=== PATIENT | female | born 1955 | race African-American/Black ===

== ENCOUNTER 2020-12-16 15:50 | Outpatient (CLI) | payer MEDICARE, SELFPAY ==
[2020-12-16 17:19] LABS: Hemoglobin A1C 6.8 % (<5.7)
[2020-12-16 17:22] LABS: Alanine Aminotransferase 9 U/L (4-35); Alkaline Phosphatase 104 U/L (38-126); Anion Gap 8 mmol/L (8-16); Aspartate Amino Transferase 16 U/L (14-36); Bilirubin,Total 0.6 mg/dL (0.2-1.3); Blood Urea Nitrogen 22 mg/dL (7-17); Calcium 9.9 mg/dL (8.4-10.2); Carbon Dioxide 25 mmol/L (22-30); Chloride 109 mmol/L (98-107); Cholesterol 254 mg/dL (0-200); Estimated Glomerular Filt Rate 60; Glucose 120 mg/dL (65-110); HDL Direct 47 mg/dL; Potassium 4.4 mmol/L (3.4-5.0); Sodium 142 mmol/L (137-145); Triglycerides 336 mg/dL (<150)
[2020-12-16 17:33] LABS: LDL Cholesterol Direct 117 mg/dL
== END 2020-12-16 15:51 | disposition home or self-care (01) ==
LOC: ANHWCLAB 15:55
PROVIDERS: PCP Internal Medicine; Referring Provider Internal Medicine; Visit Provider Internal Medicine
DX: E11.49 Type 2 diabetes mellitus with other diabetic neurological complication (principal); Z51.81 Encounter for therapeutic drug level monitoring; Z79.899 Other long term (current) drug therapy; M10.9 Gout, unspecified; E78.5 Hyperlipidemia, unspecified
CPT/HCPCS: 36415; 80053; 80061; 83036; 84550

== ENCOUNTER 2020-12-17 13:16 | Outpatient (CLI) | payer MEDICARE, SELFPAY ==
[2020-12-17 13:43] LABS: Creatinine Urine 27.5 mg/dL
[2020-12-17 13:48] LABS: MALB Creatinine Ratio 53.1 mg/g (0-30); Microalbumin Urine Random 14.6 mg/L (0-16.7)
== END 2020-12-17 13:17 | disposition home or self-care (01) ==
LOC: ANHLAB 13:19
PROVIDERS: PCP Internal Medicine; Visit Provider Internal Medicine
DX: E11.49 Type 2 diabetes mellitus with other diabetic neurological complication (principal); I10 Essential (primary) hypertension; M10.9 Gout, unspecified
CPT/HCPCS: 82043

== ENCOUNTER 2020-12-24 08:05 | Outpatient (CLI) | payer MEDICARE, SELFPAY ==
--- NOTE | ~2020-12-24 | US_ITS ---
EXAMINATION: US arterial ankle brachial ind DATE: 12/24/2020 08:46 INDICATION: Peripheral vascular disease TECHNIQUE: Segmental pressures and plethysmographic and Doppler waveforms of the brachial and lower e xtremity arteries were obtained. COMPARISON: None. FINDINGS: Right and left brachial artery pressures of 232 mm Hg and 234 mm Hg, respectively, are concordant (no rmal difference <= 30 mmHg). The right ankle-brachial index (FRANCESCO) is 0.76 (normal >= 0.9-1.0). The right great toe-brachial index (TBI) is 0.58 (normal >= 0.65). Arterial Doppler waveforms are biphasic with brisk systolic upstrokes . The left FRANCESCO is 0.76. The left TBI is 0.49. Arterial Doppler waveforms are biphasic with brisk systol ic upstrokes. IMPRESSION: 1. Arterial occlusive disease to the bilateral lower limbs with mild to moderately decreased bilatera l ABIs and mildly decreased right and mild to moderately decreased left TBIs Reviewed, dictated and finalized at location A. IMPRESSION: 1. Arterial occlusive disease to the bilateral lower limbs with mild to moderat tres decreased bilateral ABIs and mildly decreased right and mild to moderately decreased left TBIs
== END 2020-12-24 08:06 | disposition home or self-care (01) ==
PROVIDERS: PCP Internal Medicine; Visit Provider Internal Medicine
DX: I70.203 Unspecified atherosclerosis of native arteries of extremities, bilateral legs (principal)
CPT/HCPCS: 93922

== ENCOUNTER 2021-01-16 10:30 | Outpatient (CLI) | payer MEDICARE, SELFPAY ==
[2021-01-16 11:10] LABS: Anion Gap 10 mmol/L (8-16); Blood Urea Nitrogen 19 mg/dL (7-17); Calcium 9.6 mg/dL (8.4-10.2); Carbon Dioxide 26 mmol/L (22-30); Chloride 109 mmol/L (98-107); Estimated Glomerular Filt Rate 50; Glucose 112 mg/dL (65-110); Potassium 4.3 mmol/L (3.4-5.0); Sodium 145 mmol/L (137-145)
== END 2021-01-16 10:31 | disposition home or self-care (01) ==
LOC: ANHLAB 10:32
PROVIDERS: PCP Internal Medicine; Visit Provider Internal Medicine
DX: I10 Essential (primary) hypertension (principal)
CPT/HCPCS: 36415; 80048

== ENCOUNTER 2021-02-18 15:31 | Outpatient (CLI) | payer MEDICARE, SELFPAY ==
--- NOTE | ~2021-02-18 | XR_ITS ---
XR chest 2V 02/18/2021 16:04 Indication: Shortness of breath Procedure: 2 view chest Comparison: No prior studies for comparison. Findings: Borderline heart size. There are bilateral infiltrates of the mid and lower lung zones, kandi picious for pneumonia versus edema. Small right pleural effusion. There is prominent right paratrache al and right hilar soft tissue. Consider lymphadenopathy. Impression: 1: Bilateral mixed interstitial and airspace disease of the mid and lower lungs, suspicious for pneum onia versus edema. 2: Possible mediastinal/right hilar lymphadenopathy. Consider correlation with contrast-enhanced CT chest. Reviewed, dictated and finalized at location A. GEMENT INTERNSHIP Impression: 1: Bilateral mixed interstitial and airspace disease of the mid and lower lungs , suspicious for pneumonia versus edema. 2: Possible mediastinal/right hilar lymphadenopathy. Consider correlation with contrast-enhanced CT chest.
== END 2021-02-18 15:32 | disposition home or self-care (01) ==
PROVIDERS: PCP Internal Medicine; Visit Provider Internal Medicine
DX: R53.83 Other fatigue (principal); I10 Essential (primary) hypertension; R06.02 Shortness of breath; R91.8 Other nonspecific abnormal finding of lung field
CPT/HCPCS: 71046

== ENCOUNTER 2021-02-28 15:13 | Outpatient (CLI) | payer MEDICARE, SELFPAY ==
[2021-02-28 15:51] LABS: Basophils Percent Auto 0.6 % (0.2-1.2); Eosinophils Absolute Auto 0.2 K/mm3 (0-0.3); Eosinophils Percent Auto 2.2 % (0-4.4); Hematocrit 36.9 % (37.0-47.0); Immature Granulocyte Absolute 0.03 K/mm3 (0.00-0.031); Immature Granulocyte Percent A 0.4 % (0-0.5); Lymphocytes Percent Auto 27.9 % (18.3-44.2); Mean Corpuscular HGB Conc 32.5 g/dl (32-36); Mean Corpuscular Hemoglobin 30.8 pg (26-34); Mean Corpuscular Volume 94.6 fl (80-100); Mean Platelet Volume 9.4 fl (7.4-10.4); Monocytes Absolute Auto 0.4 K/mm3 (0.1-0.6); Monocytes Percent Auto 6.2 % (2.6-8.5); Neutrophils Absolute Auto 4.3 K/mm3 (1.3-6.7); Neutrophils Percent Auto 62.7 % (45.5-73.1); Platelet Count Result 366 k/mm3 (150-375); Red Cell Distribution Width 13.2 % (11.5-14.5); White Blood Count 6.8 K/mm3 (4.5-10.0)
[2021-02-28 16:05] LABS: Alanine Aminotransferase 28 U/L (4-35); Albumin Level 3.9 g/dL (3.5-5.1); Alkaline Phosphatase 96 U/L (38-126); Anion Gap 6 mmol/L (8-16); Aspartate Amino Transferase 29 U/L (14-36); Bilirubin,Total 0.4 mg/dL (0.2-1.3); Blood Urea Nitrogen 19 mg/dL (7-17); Calcium 9.5 mg/dL (8.4-10.2); Carbon Dioxide 25 mmol/L (22-30); Chloride 106 mmol/L (98-107); Estimated Glomerular Filt Rate 54; Glucose 184 mg/dL (65-110); Potassium 3.9 mmol/L (3.4-5.0); Sodium 137 mmol/L (137-145)
== END 2021-02-28 15:14 | disposition home or self-care (01) ==
LOC: ANHLAB 15:17
PROVIDERS: PCP Internal Medicine; Visit Provider Internal Medicine
DX: R53.83 Other fatigue (principal); I10 Essential (primary) hypertension; R06.02 Shortness of breath
CPT/HCPCS: 36415; 80053; 85025

== ENCOUNTER 2021-03-12 08:03 | Outpatient (CLI) | payer MEDICARE, SELFPAY ==
--- NOTE | ~2021-03-12 | CT_ITS ---
EXAMINATION: CT chest high resolution wo mi EXAM DATE: 03/12/2021 08:35 INDICATION: R93.89 - Abnormal findings on diagnostic imaging of other... which reported mixed interst itial airspace disease and possible right hilar/mediastinal lymphadenopathy. TECHNIQUE: Spiral CT of the chest without contrast. HRCT. Axial, coronal and sagittal images of the c hest were reviewed. Coronal maximum intensity pixel images of chest reviewed. The dose-length produ ct (DLP) for this examination was 274.34 mGy-cm. The exposure was tailored according to patient size (auto mA exposure control), and iterative reconstruction (ASIR) was used as additional dose reductio n technique. Correlation is made to Chest x-ray 02/18/2021. FINDINGS: No evidence of interstitial lung disease on the HRCT. There is moderate cardiomegaly and al so moderate-sized pericardial effusion. There is moderate to large right pleural effusion and small t o moderate left pleural effusion. There is collapsed right middle lobe and lingula, additional segmen aviva bibasilar atelectasis. No hilar or mediastinal lymphadenopathy suspected on this noncontrast study. Numerous small gallstone s. Moderate-sized bridging endplate osteophytes, diffuse idiopathic skeletal hyperostosis. There are no osteoblastic or osteolytic lesions identified. IMPRESSION: 1. Moderate cardiomegaly and moderate pericardial effusion. 2. Moderate to large right, small to moderate left pleural effusions. 3. Multisegmental basilar atelectasis. 4. Cholelithiasis. Reviewed, dictated and finalized at location B. ESSOR OF BUSINESS ADMINISTRATION
--- NOTE | 2021-03-12 08:55 | ECHO_ITS ---
Patient Info Name: Isabel Wick Age: 66 years : 1955 Gender: Female Ht: 66 in Wt: 178 lbs BSA: 1.96 m2 HR: 77 bpm BP: 170 / 99 mmHg Exam Date: 03/12/2021 9:23 AM Exam Location: [facility] Patient Status: Outpatient Admit Date: 03/12/2021 Staff Ordering Physician: Gabino Wiseman DO Parallel Computing Software Engineer: Glenn Zuleta RDCS, RT Attending Provider: Gabino Wiseman DO Referring Physician: Ivone GARCIA; Exam Type: CA echo doppler color flow Study Info Indications I10 - Essential (primary) hypertension Complete two-dimensional, color flow and Doppler transthoracic echocardiogram is performed. Strain analysis performed. Summary 1. Complete two-dimensional, color flow and Doppler transthoracic echocardiogram is performed. 2. Left ventricular chamber dimension is severely enlarged. 3. Left ventricular systolic function is severely reduced, estimated at 15-20%. 4. There is mildly increased left ventricular wall thickness. 5. The left ventricular diastolic function is grade I diastolic dysfunction. 6. E/e' 27 is significantly elevated. 7. Global longitudinal strain is abnormal at -6.7%. 8. Right ventricular systolic function is severely reduced and with abnormal TAPSE 1.5 cm. 9. Left atrial chamber dimension is moderately enlarged. 10. Right atrial chamber dimension is mildly enlarged. 11. There is mild aortic valve sclerosis. 12. There is trace mitral valve regurgitation. 13. There is mild tricuspid valve regurgitation. 14. Severe pulmonary hypertension, estimated pulmonary arterial systolic pressure is 70 mmHg. 15. There is trace pulmonic regurgitation. 16. There is small-moderate circumferential pericardial effusion with up to 1.4 cm effusion. No cardiac tamponade. Left Ventricle E/e' 27 is significantly elevated. Global longitudinal strain is abnormal at -6.7%. Left ventricular chamber dimension is severely enlarged. Left ventricular systolic function is severely reduced, estimated at 15-20%. There is mildly increased left ventricular wall thickness. The left ventricular diastolic function is grade I diastolic dysfunction. Right Ventricle Right ventricular systolic function is severely reduced and with abnormal TAPSE 1.5 cm. Right ventricular chamber dimension is normal. Left Atria Left atrial chamber dimension is moderately enlarged. Right Atria Right atrial chamber dimension is mildly enlarged. Aortic Valve The aortic valve is trileaflet. There is mild aortic valve sclerosis. There is no aortic valve stenosis. There is no aortic valve regurgitation. Pulmonic Valve There is trace pulmonic regurgitation. Mitral Valve There is no mitral valve stenosis. There is trace mitral valve regurgitation. Tricuspid Valve There is mild tricuspid valve regurgitation. Severe pulmonary hypertension, estimated pulmonary arterial systolic pressure is 70 mmHg. Pericardium/Pleural There is small-moderate circumferential pericardial effusion with up to 1.4 cm effusion. No cardiac tamponade. Inferior Vena Cava Normal inferior vena cava with >50% collapse upon inspiration consistent with normal right atrial pressure, 5 mmHg. Aorta The aortic root size at the sinus of Valsalva is normal. Left Ventricular Outflow Tract Name Value Normal LVOT 2D
== END 2021-03-12 08:04 | disposition home or self-care (01) ==
PROVIDERS: PCP Internal Medicine; Visit Provider Internal Medicine
DX: R91.8 Other nonspecific abnormal finding of lung field (principal); K80.20 Calculus of gallbladder without cholecystitis without obstruction; I10 Essential (primary) hypertension; I36.1 Nonrheumatic tricuspid (valve) insufficiency; I27.20 Pulmonary hypertension, unspecified; I31.3 Pericardial effusion (noninflammatory); I51.7 Cardiomegaly; J90 Pleural effusion, not elsewhere classified; M48.10 Ankylosing hyperostosis [Forestier], site unspecified
CPT/HCPCS: 71250; 93306

== ENCOUNTER 2021-03-24 18:27 | Inpatient (IN) | payer MEDICARE, SELFPAY ==
--- NOTE | ~2021-03-24 | CT_ITS ---
EXAMINATION: CTA brain carotid EXAM DATE: 03/25/2021 00:45 INDICATION: Stroke. Slurred speech. TECHNIQUE: Noncontrast head CT. Spiral CTA of the carotid arteries was performed with intravenous i njection 100 cc of Omnipaque 350. Axial, coronal, sagittal reformatted images reviewed. Additional r eformatted images created on dedicated 3-D workstation. NASCET comparable standard used to assess th e degree of arterial stenosis. Spiral CT angiogram cerebral arteries performed with the same intrave nous injection of contrast. Source images of the brain CTA transferred to dedicated workstation for 3 -D rotational image creation. Coronal, sagittal maximum intensity pixel images also reviewed. The d ose-length product (DLP) for this examination was 1757.80 mGy-cm. The exposure was tailored accordi ng to patient size, and iterative reconstruction (ASIR) was used as additional dose reduction techniq ue. Comparison is made to prior examination from CT head 03/24/2021. FINDINGS: There is mild bilateral carotid bulb arterial sclerosis, 0% carotid stenosis bilaterally. T he vertebral arteries are codominant. The right M1 segment is truncated just before its trifurcation with significantly diminished flow in the branches distal to this. Probably acutely thrombosed given appearance on head CT. There is no carotid or vertebral basilar arterial dissection or fibromuscular dysplasia. There are no cerebral artery aneurysms. There is symmetric cerebral artery arborization. The sagittal, transverse and sigmoid sinuses enhance normally, no venous sinus thrombosis. Internal c erebral veins also enhance normally. Interval development of cramer-white differentiation loss involving large portion of the right middle c erebral artery with diffusion, consistent with acute infarction. No hemorrhagic conversion. There is punctate old left caudate head lacunar infarction. There is no acute intraparenchymal hemorrhage. No evidence of intraparenchymal brain mass lesion. There is no mass effect or midline shift. There is no obstructive hydrocephalus suspected. There are no extra-axial collections. Incidental Findings: Bilateral pleural effusions. Cervical spondylosis. Subcentimeter thyroid nodules . IMPRESSION: 1. Right M1 occlusion likely acute thrombus, subsequent developing large MCA acute infarction. 2. Bilateral carotid bulb 0% stenosis. Reviewed, dictated and finalized at location A. O MANAGER IMPRESSION: 1. Right M1 occlusion likely acute thrombus, subsequent developing large MCA a cute infarction. 2. Bilateral carotid bulb 0% stenosis.
--- NOTE | ~2021-03-24 | XR_ITS ---
EXAMINATION: XR chest ET placement EXAM DATE: 03/26/2021 03:13 INDICATION: After intubation to confirm ET placement . TECHNIQUE: Portable AP frontal chest x-ray was obtained. Comparison is made to prior examination from earlier same date. FINDINGS: Endotracheal tube tip is 1.6 centimeters above the chito. There is a nasogastric tube see n with tip collimated off the study, but below the left hemidiaphragm. Cardiomegaly and pericardial e ffusion. No sizable pleural effusion. Developing left lower lobe pneumonia or edema. There is no pneu mothorax suspected. There is aortic arteriosclerosis. IMPRESSION: 1. ET tube tip above chito but could be safely retracted 1 cm. 2. Cardiomegaly, pericardial effusion. 3. Developing retrocardiac edema or pneumonia. Reviewed, dictated and finalized at location A. GER ESTATE
--- NOTE | ~2021-03-24 | XR_ITS ---
XR chest 1V DATE: 03/24/2021 20:51 INDICATION: Fall. Weakness. Transient alteration of awareness. TECHNIQUE: Supine AP view on 03/24/2021 at 2032 hours COMPARISON: 03/12/2021 CT chest high resolution scan 02/18/2021 PA and lateral chest FINDINGS: There is very prominent globular enlargement of the cardiac silhouette, increased since , due to a combination of pericardial effusion and cardiomegaly documented on 03/12/2021 CT ch est examination. Prominent aortic arch calcification. Left lower lobe infiltrate and/atelectasis and to a lesser extent right mid and lower lung atelectasi s are suggested. Small pleural effusions are suggested. No pneumothorax. Diffuse osteopenia. Degenerative spurring of the thoracic spine. IMPRESSION: Prominent globular enlarged cardiac silhouette due to a combination of cardiomegaly and p ericardial effusion Left lower lobe atelectasis at right mid and lower lung atelectasis and/or infiltrate Reviewed, dictated and finalized at location A. LING MACHINE OPERATOR IMPRESSION: Prominent globular enlarged cardiac silhouette due to a combination of cardiomegaly and pericardial effusion Left lower lobe atelectasis at right mid and lower lung atelectasis and/or infi ltrate
--- NOTE | ~2021-03-24 | XR_ITS ---
EXAMINATION: XR chest 1V portable DATE: 03/29/2021 07:12 INDICATION: Intubation. TECHNIQUE: A single frontal view of the chest was obtained. COMPARISON: Chest single view 03/28/2021, chest CT 03/12/2021 FINDINGS: There are airspace opacities in the lower lung zones, left worse than right. A calcified ri ght lung nodules consistent with old granulomatous disease. There are small pleural effusions. No pne umothorax. There is enlargement of cardiac silhouette. The nasogastric tube tip is beyond the inferio r margin of the radiograph, but at least to the stomach. The endotracheal tube tip is 3.5 cm above th e chito. A right upper extremity peripherally inserted central venous catheter (PICC) is seen with t ip in the left brachiocephalic vein. IMPRESSION: 1. Airspace opacities in the lower lung zones with mild improvement on the left, consistent with atel ectasis versus pneumonia. 2. Stable small pleural effusions. 3. Enlargement of the cardiac silhouette, likely a combination of cardiomegaly and pericardial effusi on. 4. Right-sided PICC tip now in the left brachiocephalic vein. Reviewed, dictated and finalized at location A. K HACKER IMPRESSION: 1. Airspace opacities in the lower lung zones with mild improvement on the left , consistent with atelectasis versus pneumonia. 2. Stable small pleural effusions. 3. Enlargement of the cardiac silhouette, likely a combination of cardiomegaly and pericardial effusion. 4. Right-sided PICC tip now in the left brachiocephalic vein.
--- NOTE | ~2021-03-24 | XR_ITS ---
EXAMINATION: XR abdomen NG/feed tube insert EXAM DATE: 03/30/2021 12:27 INDICATION: NG placement TECHNIQUE: Frontal projection(s) of the abdomen for interpretation. There is no prior study for brianne tucker. FINDINGS: Feeding tube with tip extending toward the right lower lobe, in the airway. I discussed th is with IM unit nurse taking care of patient at time of this dictation. Nonobstructive upper abdomina l bowel gas pattern. Cardiomegaly. IMPRESSION: NG tube in the airway; recommend removing. Reviewed, dictated and finalized at location A. BUYER
--- NOTE | ~2021-03-24 | XR_ITS ---
EXAMINATION: XR abdomen NG/feed tube insert DATE: 03/30/2021 13:07 INDICATION: Nasogastric tube placement. TECHNIQUE: A semierect view of the abdomen was obtained. COMPARISON: Abdomen radiograph at 12:19 PM, chest CT 03/12/2021 FINDINGS: The lower abdomen and right lateral aspect of the abdomen are excluded. There are no dilate d loops of bowel. The nasogastric tube tip is in the stomach. A right upper extremity peripherally in serted central venous catheter (PICC) is seen with tip in the superior vena cava. There is enlargemen t of the cardiac silhouette. There is a small left pleural effusion. There are airspace opacities in left mid and lower lung zones. IMPRESSION: 1. Nasogastric tube tip in the stomach. 2. Stable small left pleural effusion. 3. Airspace opacities in left mid and lower lung zones, consistent with atelectasis versus pneumonia. 4. Enlargement of the cardiac silhouette, likely a combination of cardiomegaly and pericardial effusi on. Reviewed, dictated and finalized at location A. L TRIMMER IMPRESSION: 1. Nasogastric tube tip in the stomach. 2. Stable small left pleural effusion. 3. Airspace opacities in left mid and lower lung zones, consistent with atelect asis versus pneumonia. 4. Enlargement of the cardiac silhouette, likely a combination of cardiomegaly and pericardial effusion.
--- NOTE | ~2021-03-24 | XR_ITS ---
XR hip BI 2V w AP pelvis DATE: 03/24/2021 20:51 INDICATION: Unwitnessed fall. TECHNIQUE: AP pelvis. AP and lateral views of each hip. COMPARISON: None FINDINGS: No pelvic fracture or bone destruction is detected. The pubic symphysis and sacroiliac join ts are intact. No fracture or dislocation, avascular necrosis or bone destruction of either hip is noted. Mild hip o steoarthritis. Degenerative disc disease and included L4-5 and L5-S1. IMPRESSION: No pelvic or hip fracture or dislocation Reviewed, dictated and finalized at location A. ODITY TRADER
--- NOTE | ~2021-03-24 | CT_ITS ---
EXAMINATION: CT cervical spine wo con DATE: 03/24/2021 20:34 INDICATION: Unwitnessed fall. Head and neck injury. TECHNIQUE: Computed tomography (CT) of the cervical spine was performed without intravenous contrast. Automated exposure control and iterative reconstruction technique were employed. Exam dose: 424.04 mGy-cm total exam DLP. COMPARISON: None FINDINGS: C1 and C2 are normally aligned and the odontoid process is intact. There is a 1.4 mm anterolisthesis at C4-5. There is severe degenerative disc disease and 2.5 mm retrolisthesis at C5-6. There is mild to moderate degenerative disc disease and slight anterolisthesis at C6-7. Moderate dege nerative disc disease at C7-T1 and T1-2. There is fusion of the left C2-3 apophyseal joint and prominent degenerative changes at the remaining bilateral cervical apophyseal joints. There is degenerative spurring at the uncovertebral joints, particularly severe at C5-6.. IMPRESSION: Prominent cervical spondylosis; no fracture or dislocation or locked facet Reviewed, dictated and finalized at [facility]. Reviewed, dictated and finalized at location A. ILE SCREEN MAKER IMPRESSION: Prominent cervical spondylosis; no fracture or dislocation or lock ed facet
--- NOTE | ~2021-03-24 | XR_ITS ---
EXAMINATION: XR chest 1V portable DATE: 03/28/2021 05:53 INDICATION: Intubation. TECHNIQUE: A single frontal view of the chest was obtained. COMPARISON: Chest single view 03/27/2021, chest CT 03/12/2021 FINDINGS: Calcified right lung nodules are consistent with old granulomatous disease. There are airsp delmar opacities in the right lower lung zone and left lower lobe and lingula. There are small pleural e ffusions. No pneumothorax. There is enlargement of the cardiac silhouette. The endotracheal tube tip is 2.3 cm above the chito. The nasogastric tube tip is beyond the inferior margin of the radiograph, but at least to the stomach. A right upper extremity peripherally inserted central venous catheter ( PICC) is seen with tip in the superior vena cava. IMPRESSION: 1. Stable airspace opacities in the right lower lung zone and left lower lobe and lingula, consistent with atelectasis versus pneumonia. 2. Stable small pleural effusions. 3. Stable enlargement of the cardiac silhouette, likely a combination of cardiomegaly and pericardial effusion. Reviewed, dictated and finalized at location A. MS DIRECTOR IMPRESSION: 1. Stable airspace opacities in the right lower lung zone and left lower lobe a nd lingula, consistent with atelectasis versus pneumonia. 2. Stable small pleural effusions. 3. Stable enlargement of the cardiac silhouette, likely a combination of cardio megaly and pericardial effusion.
--- NOTE | ~2021-03-24 | US_ITS ---
EXAMINATION: US renal BI EXAM DATE: 03/25/2021 10:24 INDICATION: Acute kidney insufficiency. TECHNIQUE: Multiple grayscale and Doppler images of the kidneys were obtained (by a technologist who performed the scan) and subsequently reviewed. There is no prior study for comparison. FINDINGS: Right kidney: There is normal contour and echogenicity. It measures 11.3 x 4.4 x 4.3 centimeters. Th ere is a 1.3 cm cyst. There is no hydronephrosis. Left kidney: Limited from bowel gas obscuring. There is normal contour and echogenicity. It measures 10.6 x 4.7 x 5.3 centimeters. There are no focal renal lesions identified. There is no hydronephr osis. Bladder is undistended and poorly visualized. Incidental cholelithiasis. IMPRESSION: 1. No hydronephrosis. 2. Cholelithiasis. Reviewed, dictated and finalized at location A. INE STOPPAGE FREQUENCY CHECKER
--- NOTE | ~2021-03-24 | CT_ITS ---
EXAMINATION: CT brain wo con DATE: 03/24/2021 20:33 INDICATION: Fall. Weakness. TECHNIQUE: Computed tomography (CT) of the head was performed without intravenous contrast. The mA wa s adjusted according to patient size. Iterative reconstruction technique was employed. Exam dose: 68 1.00 mGy-cm total exam DLP. COMPARISON: None FINDINGS: There is a chronic lacunar infarct of the left caudate nucleus. There is intracranial cerebral atherosclerosis including calcification of the vertebral arteries, bas ilar artery and bilateral carotid siphon internal carotid artery calcifications. No recent cerebrovas cular accident is detected. There is nonspecific diminished attenuation of the cerebral white matter, likely due to chronic small vessel ischemic changes. Ventricular size appears normal. No midline shift or mass effect effect. No subdural or epidural adria fawad. No skull fracture or bone destruction. There is nearly complete opacification of the left frontal sinus. Opacified posterior right ethmoid a ir cell. There is soft tissue thickening of the sphenoid sinuses. The mastoid air cells are normally developed and aerated. IMPRESSION: Cerebral atherosclerosis and chronic small vessel ischemic changes of cerebral white mat ter Chronic left caudate nucleus lacunar infarct No acute intracranial finding Paranasal sinus disease Reviewed, dictated and finalized at [facility]. Reviewed, dictated and finalized at location A. MECHANIC IMPRESSION: Cerebral atherosclerosis and chronic small vessel ischemic changes of cerebral white matter Chronic left caudate nucleus lacunar infarct No acute intracranial finding Paranasal sinus disease
--- NOTE | ~2021-03-24 | XR_ITS ---
EXAMINATION: XR abdomen NG/feed tube insert EXAM DATE: 03/26/2021 03:13 INDICATION: og tube placement. TECHNIQUE: Frontal projection(s) of the abdomen for interpretation. There is no prior study for brianne tucker. FINDINGS: Feeding tube tip projects over gastric antral region. Nonobstructive upper abdominal bowel gas pattern. Retrocardiac airspace disease. Cardiomegaly and pericardial effusion. Right basilar gran uloma. IMPRESSION: Feeding tip in position. Reviewed, dictated and finalized at location A. ESSOR OF CRIMINAL JUSTICE IMPRESSION: Feeding tip in position.
--- NOTE | ~2021-03-24 | XR_ITS ---
EXAMINATION: XR chest 1V portable EXAM DATE: 03/26/2021 03:12 INDICATION: Respiratory failure . TECHNIQUE: Portable AP frontal chest x-ray was obtained. Comparison is made to prior examination from 03/24/2021. FINDINGS: Severely enlarged cardiac silhouette, combination of cardiomegaly and pericardial effusion. No sizable pleural effusion. No pneumothorax or confluent consolidation. There may be developing air space disease, edema or pneumonia. There are no osseous abnormalities identified. IMPRESSION: 1. Cardiomegaly and pericardial effusion. 2. Possible developing airspace disease, edema or pneumonia. Reviewed, dictated and finalized at location A. E PROCESSING MACHINE OPERATOR
--- NOTE | ~2021-03-24 | XR_ITS ---
XR foot LT min 3V DATE: 03/24/2021 21:51 INDICATION: Left foot crush injury, pain TECHNIQUE: 4 views COMPARISON: None FINDINGS: There is diffuse osteopenia. Plantar calcaneal enthesopathy. No recent fracture or dislocation, periosteal reaction or bone destruction is detected. Joint spaces appear relatively preserved. IMPRESSION: Osteopenia Plantar calcaneal enthesopathy Reviewed, dictated and finalized at location A. FOUNTAIN OPERATOR
--- NOTE | ~2021-03-24 | XR_ITS ---
EXAMINATION: XR chest 1V portable EXAM DATE: 03/27/2021 06:35 INDICATION: Respiratory failure. TECHNIQUE: Portable AP frontal chest x-ray was obtained. Comparison is made to prior examination from 03/26/2021. FINDINGS: Endotracheal tube tip is 4 centimeters above the chito. There is a nasogastric tube seen with tip collimated off the study, but below the left hemidiaphragm. Cardiomegaly and pericardial eff usion. There is multi segmental left lower lobe consolidation with air bronchograms. Probable develop ing small to moderate left pleural effusion right lateral sulcus granuloma. There is no pneumothorax suspected. There is aortic arteriosclerosis. IMPRESSION: 1. Tubes in position 2. Cardiomegaly, pericardial effusion. 3. Dense retrocardiac edema or pneumonia. 4. Developing left pleural effusion. Reviewed, dictated and finalized at location A. [facility]
--- NOTE | ~2021-03-24 | XR_ITS ---
XR ankle LT min 3V DATE: 03/24/2021 20:50 INDICATION: Left ankle swelling TECHNIQUE: 4 views COMPARISON: None FINDINGS: There is left ankle soft tissue swelling, more prominent laterally. There is diffuse osteopenia. No fracture or dislocation of the ankle or disruption of the ankle mortise is detected. No periosteal reaction or bone destruction. Prominent plantar calcaneal enthesopathy. IMPRESSION: Soft tissue swelling, more prominent laterally Reviewed, dictated and finalized at location A. EL ROLLER
[2021-03-24 18:29] VITALS: BP 192/89; PULSE 78; RESP 26; TEMP 36.6; O2SAT 96
[2021-03-24 18:58] LABS: Glucose Point of Care 217 mg/dl (65-105)
[2021-03-24 19:23] VITALS: BP 111/70; PULSE 73; RESP 21; O2SAT 95
--- NOTE | 2021-03-24 19:32 | ED.GENADULT ---
HPI - General Adult General Chief complaint: Altered Mental Status Stated complaint: altered loc - unknown duration 24-36 hours Time Seen by Provider: 03/24/21 18:27 Source: family and EMS Mode of arrival: EMS Limitations: altered mental status History of Present Illness HPI narrative: Patient brought in by EMS with reports of altered mental status. Patient's brother and his girlfriend are here at the bedside and provide me with majority of history. Apparently no one was able to get a hold of patient for the last 24 to 36 hours. Brother indicates that he speaks with his sister on a daily basis but has not spoken with her since 03/22/2021. One of her friends contacted him today concerned that they were unable to reach her on the phone. He went to her place of residence around 1700 and found her laying on the ground. He called her name and she informed him where in the residence she was. She was laying on the ground with her head under her bed. EMS was contacted. When they arrived they checked her BS and she had a reading of 40. They attempted to give her juice unsuccessfully. She was confused at that time. Patient's past medical history includes hypertension, hyperlipidemia, depression, and diabetes which appears to be controlled with oral agents alone. Family states patient had been incontinent of urine when they found her. Related Data Home Medications Medication Instructions Recorded Confirmed aspirin 81 mg tablet,delayed 81 mg PO DAILY 12/16/20 03/20/21 release pantoprazole 40 mg tablet,delayed 40 mg PO QAM 12/16/20 03/20/21 release bumetanide 2 mg tablet 4 mg PO DAILY tablet 01/06/21 03/20/21 spironolactone 25 mg tablet 50 mg PO DAILY tablet 02/18/21 03/20/21 Allergies Allergy/AdvReac Type Severity Reaction Status Date / Time amlodipine Allergy Mild y Verified 03/20/21 14:07 Review of Systems Review of Systems: ROS unobtainable: Yes unobtainable due to mental status PMFSH Past Medical History Medical History (Updated 03/24/21 @ 21:49 by Spencer Cuellar, RAUL, AJ) Crying Diabetes Frequent urination High blood pressure Hot flashes Hyperlipidemia Leg pain Memory loss Swollen feet Weakness Surgical History Surgical History History of back surgery Family History Family History Mother Hypertension Sibling Alcoholism Heart problem Social History Social History Smoking packs per day: 0.75 Smoking cigarettes per day: 15.0 Years smoked: 40 Smoking pack-years: 30.00 Smoking status: Current every day smoker Tobacco type: cigarettes Second hand tobacco smoke exposure: No Alcohol intake: never Substance use: never Substance use type: does not use Exam Narrative: GENERAL: Well-appearing, well-nourished, and in no acute distress. HEAD: Normocephalic, atraumatic. EYES: PERRLA and EOMI. ENT: Nares clear, no rhinorrhea or epistaxis. Mucous membranes moist. Oropharynx without tonsillar hypertrophy exudate or other lesions. Bilateral TMs pearly cramer nonbulging NECK: Supple. No adenopathy or masses. No carotid bruits or JVD CHEST: Clear to auscultation. No respiratory distress. No wheezes rales or rhonchi HEART: Regular rate and rhythm. No murmur heard. Normal peripheral pulses. ABDOMEN: Soft, nontender, nondistended, normal active bowel sounds. EXTREMITIES: 1+ nonpitting edema to left ankle SKIN: Warm, dry, no rash. NEURO: Lethargic, localizes to physical stimuli. Does not answer any orientation questions or interview questions PSYCH: Normal mood and affect. Course Course Emergency Course: This is a 66-year-old female brought in by EMS after being found down at home by her brother. Blood sugar at home was 40. Upon arriving here she was lethargic and localized to physical stimuli. No signif
[2021-03-24 20:12] LABS: Basophils Percent Auto 0.3 % (0.2-1.2); Eosinophils Percent Auto 0.2 % (0-4.4); Hematocrit 41.7 % (37.0-47.0); Hemoglobin 13.5 g/dL (12.0-15.0); Immature Granulocyte Absolute 0.03 K/mm3 (0.00-0.031); Immature Granulocyte Percent A 0.3 % (0-0.5); Lymphocytes Percent Auto 10.3 % (18.3-44.2); Mean Corpuscular HGB Conc 32.4 g/dl (32-36); Mean Corpuscular Hemoglobin 31.1 pg (26-34); Mean Corpuscular Volume 96.1 fl (80-100); Mean Platelet Volume 9.8 fl (7.4-10.4); Monocytes Absolute Auto 0.5 K/mm3 (0.1-0.6); Monocytes Percent Auto 4.8 % (2.6-8.5); Neutrophils Absolute Auto 8.9 K/mm3 (1.3-6.7); Neutrophils Percent Auto 84.1 % (45.5-73.1); Platelet Count Result 314 k/mm3 (150-375); Red Blood Count 4.34 M/mm3 (4.2-5.4); Red Cell Distribution Width 13.6 % (11.5-14.5); White Blood Count 10.6 K/mm3 (4.5-10.0)
[2021-03-24 20:21] LABS: Ethanol < 10 mg/dL (<10)
[2021-03-24 20:22] LABS: Alanine Aminotransferase 21 U/L (4-35); Albumin Level 3.8 g/dL (3.5-5.1); Alkaline Phosphatase 93 U/L (38-126); Anion Gap 9 mmol/L (8-16); Aspartate Amino Transferase 31 U/L (14-36); Blood Urea Nitrogen 27 mg/dL (7-17); Calcium 9.4 mg/dL (8.4-10.2); Carbon Dioxide 28 mmol/L (22-30); Chloride 101 mmol/L (98-107); Creatine Kinase 305 U/L (30-135); Estimated CRCL calculation 46 ml/min; Estimated Glomerular Filt Rate 60; Glucose 149 mg/dL (65-110); INR 1.4; Potassium 3.8 mmol/L (3.4-5.0); Prothrombin Time 16.7 Seconds (11.1-14.7); Sodium 138 mmol/L (137-145)
[2021-03-24 20:23] LABS: Partial Thromboplastin Time 35.9 SECONDS (22.3-36.8)
[2021-03-24 20:37] LABS: NT Pro B Type Natriuretic Pept 25800 pg/mL (5-100)
--- NOTE | 2021-03-24 20:54 | ECG_ITS ---
Measurements Intervals Spring Rate: 78 P: 49 UT: 174 QRS: -29 QRSD: 100 T: 165 QT: 408 QTc: 465 Interpretive Statements SINUS RHYTHM POSSIBLE LEFT ATRIAL ENLARGEMENT DELAYED PRECORDIAL R/S TRANSITION POSSIBLE LEFT VENTRICULAR HYPERTROPHY ST-T WAVE ABNORMALITY IN ANTEROLAT/HIGH LAT LEADS- CONSIDER ISCHEMIA ABNORMAL ECG Electronically Signed On 03-25-2021 7:30:20 TABLET TESTER by Marc Barragan D.O.
[2021-03-24 21:23] LABS: Add Urine Microscopic? YES; Appearance Urine Clear (Clear); Bilirubin Urine Negative (Negative); Blood Urine 1+ (Negative); Color Urine Yellow (Yellow); Glucose Urine UA Negative (Negative); Ketones Urine Negative (Negative); Leukocyte Esterase Ur Negative LEU/UL (Negative); Mucus Urine Rare /lpf; Nitrate Urine Negative (Negative); Protein Urine 3+ mg/dL (Negative); Specific Grav Ur 1.016 (1.001-1.035); Squamous Epithelial Cell Urine Moderate /hpf (Few); Urobilinogen Urine Negative mg/dL (<2.0); WBC Urine 16-20 /hpf
[2021-03-24 21:37] LABS: Amphetamine Screen Urine Negative (Negative); Barbiturate Screen Urine Negative (Negative); Benzodiazepines Screen Urine Negative (Negative); Cannabinoid Screen Urine Negative (Negative); Cocaine Screen Urine Negative (Negative); Methadone Screen Urine Negative (Negative); Opiate Screen Urine Negative (Negative); Phencyclidine Screen Urine Negative (Negative)
--- NOTE | 2021-03-24 21:40 | PM.IMHP ---
H&P: HPI History of Present Illness Date/Time: 03/24/21 21:40 Chief Complaint: Altered mental status Narrative: This is a 66-year-old female with past medical history significant for type 2 diabetes mellitus, congestive heart failure, systolic heart failure, peripheral vascular disease, claudication, gastroesophageal reflux disease, hypertension, dyslipidemia. Patient was brought to the emergency room via EMS after she was not responding her phone and her friend and family became increasingly concerned about her she was found down in her bedroom with urine incontinence and semi unconscious EMS was called and she was found to have a blood sugar of 40. Patient was brought to the emergency room for further evaluation. Most of the history I have obtained upon reviewing medical records from primary care physician and emergency room. At the time of my visit no family is around but they were earlier. According to family members patient was noted to have a slurred speech on Josue. For the last couple of days patient or friends did not have any contact with her. In emergency room preliminary workup was significant for a CT of the head with chronic old infarct but no acute intracranial abnormality. According to medical records patient had been worked up in the outpatient setting for shortness of breath and bilateral lower extremity swelling and claudication. An ankle-brachial index performed as back as November of 2020 showed arterial occlusion moderate. A chest x-ray performed in January showed that the patient had paratracheal lymphadenopathy with possible infiltrates with possible pleural effusion, a CT high-resolution of the chest was then performed 2 weeks ago and it was noted the patient had a moderate pericardial effusion, moderate cardiomegaly, moderate to large right pleural effusion and small to moderate left pleural effusions. An echocardiogram performed on March 12, 2021 showed an ejection fraction of 15-20% with severely reduced systolic function and a small to moderate pericardial effusion with no tamponade. At the time of my visit patient is stuporous she response to painful stimuli and will open her eyes to command. Blood pressure on arrival to emergency room was 192/89 oxygen saturation on room air is 96%. A chest x-ray performed today showed increased pericardial infusion when compared to prior study. Patient is being admitted for further evaluation, management and treatment. Review of Systems Review of Systems: ROS unobtainable: Yes unobtainable due to medical condition (Stuporous) [facility] Past Medical History Medical History (Updated 03/25/21 @ 01:22 by Neto Rizo MD) Crying Diabetes Frequent urination High blood pressure Hot flashes Hyperlipidemia Leg pain Memory loss Swollen feet Weakness Surgical History Surgical History History of back surgery Family History Family History Mother Hypertension Sibling Alcoholism Heart problem Social History Social History Smoking packs per day: 0.75 Smoking cigarettes per day: 15.0 Years smoked: 40 Smoking pack-years: 30.00 Smoking status: Current every day smoker Tobacco type: cigarettes Second hand tobacco smoke exposure: No Alcohol intake: never Substance use: never Substance use type: does not use Meds Home Medications and Allergies Home Medications Medication Instructions Recorded Confirmed Type aspirin 81 mg tablet,delayed 81 mg PO DAILY 12/16/20 03/20/21 History release pantoprazole 40 mg tablet,delayed 40 mg PO QAM 12/16/20 03/20/21 History release bumetanide 2 mg tablet 4 mg PO DAILY tablet 01/06/21 03/20/21 History gabapentin 300 mg capsule 300 mg PO DAILY #90 cap 01/30/21 03/20/21 Rx metoprolol tartrate 50 mg tablet 50 mg PO DAILY
[2021-03-24 22:33] VITALS: BP 145/92; PULSE 73; RESP 18; O2SAT 100
[2021-03-24 23:21] LABS: Troponin I 0.175 ng/mL (0.000-0.034)
[2021-03-24] MEDS: FUROSEMIDE INJ 40 MG/4 ML VIAL IV PUSH (23:31)
[2021-03-24 23:35] VITALS: BP 123/106; PULSE 76; RESP 20; O2SAT 100
[2021-03-25] VITALS (14 sets, daily range): BP systolic 172–218; BP diastolic 69–91; PULSE 63–81; RESP 14–25; TEMP 36.2–36.8; O2SAT 90–100; BMI 27.3
[2021-03-25 00:15] LABS: Alveolar/Arterial O2 Gradient 43.3 mmHg; Base Excess ABG 4.4 mEq/l (+/-2.0); Fractional Inspired Oxygen 21 %; HCO3 ABG 27.4 mEq/l (22.0-26.0); Oxygen Content ABG 18.2 %vol (16.0-22.0); Oxygen Saturation ABG 94.2 % (95.0-100.0); PCO2 ABG 35.7 mmHg (35.0-45.0); PO2 ABG 63.7 mmHg (80.0-100.0); PO2 FiO2 Ratio Arterial Blood 3.03 %; Total Hemoglobin 14.2 g/dL (12.0-18.0)
[2021-03-25 00:16] LABS: Device ROOM AIR; Modified Allen's Test Unable to perform; Site Drawn RIGHT RADIAL; pH ABG 7.503 (7.350-7.450)
[2021-03-25 00:53] LABS: Glucose Point of Care 133 mg/dl (65-105)
[2021-03-25 01:09] LABS: Lactic Acid Reflex 1.9 mmol/L (0.7-2.1)
[2021-03-25 03:44] LABS: Alanine Aminotransferase 19 U/L (4-35); Albumin Level 3.7 g/dL (3.5-5.1); Alkaline Phosphatase 89 U/L (38-126); Anion Gap 4 mmol/L (8-16); Aspartate Amino Transferase 36 U/L (14-36); Bilirubin,Total 0.9 mg/dL (0.2-1.3); Blood Urea Nitrogen 26 mg/dL (7-17); Calcium 9.2 mg/dL (8.4-10.2); Carbon Dioxide 29 mmol/L (22-30); Chloride 103 mmol/L (98-107); Estimated CRCL calculation 42 ml/min; Estimated Glomerular Filt Rate 54; Glucose 165 mg/dL (65-110); Potassium 3.7 mmol/L (3.4-5.0); Sodium 136 mmol/L (137-145)
[2021-03-25 03:59] LABS: Basophils Percent Auto 0.2 % (0.2-1.2); Eosinophils Percent Auto 0.2 % (0-4.4); Hematocrit 42.3 % (37.0-47.0); Hemoglobin 13.6 g/dL (12.0-15.0); Immature Granulocyte Absolute 0.02 K/mm3 (0.00-0.031); Immature Granulocyte Percent A 0.2 % (0-0.5); Lymphocytes Absolute Auto 1.02 K/mm3 (0.9-3.2); Lymphocytes Percent Auto 11.1 % (18.3-44.2); Mean Corpuscular HGB Conc 32.2 g/dl (32-36); Mean Corpuscular Hemoglobin 30.9 pg (26-34); Mean Corpuscular Volume 96.1 fl (80-100); Mean Platelet Volume 10.3 fl (7.4-10.4); Monocytes Absolute Auto 0.5 K/mm3 (0.1-0.6); Monocytes Percent Auto 5.4 % (2.6-8.5); Neutrophils Absolute Auto 7.6 K/mm3 (1.3-6.7); Neutrophils Percent Auto 82.9 % (45.5-73.1); Platelet Count Result 317 k/mm3 (150-375); Red Cell Distribution Width 13.8 % (11.5-14.5); White Blood Count 9.2 K/mm3 (4.5-10.0)
[2021-03-25 04:01] LABS: Troponin I 0.165 ng/mL (0.000-0.034)
[2021-03-25 04:56] LABS: Glucose Point of Care 153 mg/dl (65-105)
--- NOTE | 2021-03-25 05:40 | ADMGEN ---
This patient, Isabel Wick, was admitted to Virtual Bed 3rd Floor-1. Patient/family oriented to hospital policies and general routines including ID bracelet, bed and alarms, visiting hours, pain management, procedures, bathroom and other care routines, personal items, smoking policy, room service/diet, and visiting hours. Information on how to activate the Rapid Response Team has been discussed. Patient/Family are encouraged to report perceived risks to care and to ask questions if they do not understand what they are told or what they should do.
[2021-03-25] MEDS: FUROSEMIDE INJ 40 MG/4 ML VIAL IV PUSH (08:51)
[2021-03-25 09:32] LABS: Glucose Point of Care 160 mg/dl (65-105)
--- NOTE | 2021-03-25 10:00 | PC.NURSE ---
patient went down for renal ultrasound.
[2021-03-25] MEDS: hydrALAZINE HCL 20 MG/ML VIAL 10 MG IV PUSH ×2 (12:48→23:37)
--- NOTE | 2021-03-25 13:10 | PC.NURSE ---
Unable to obtain accurate information on MRI check list, brother of patient unable to answer all questions, MRI notified and are unable to take patient at this time.
--- NOTE | 2021-03-25 13:35 | PM.IMPN ---
Progress Note: A&P Assessment and Plan (1) Altered mental status: Code(s): R41.82 - Altered mental status, unspecified Status: Acute Assessment and Plan: Patient seen well last on however was noticed to have a slurry speech time. CT head with no acute intracranial abnormalities CTA head with acute M1 thrombus causing right MCA stroke with left hemiplegia Out of window for tPA Will give aspirin 325 mg suppository has not able to swallow by mouth Continue aspirin 325 mg daily rectally Continues statin when able to take by mouth Allow permissive hypertension currently Will stop her IV Lasix as even if BNP is elevated not clinically volume overloaded. Continuous telemetry and pulse ox Aspiration precautions NPO (2) Acute stroke due to ischemia: Code(s): I63.9 - Cerebral infarction, unspecified Status: Acute Assessment and Plan: CT head and neck angio with right acute MCA stroke Patient not a candidate for tPA as reportedly seen last time over 72 hour and at that time with a slurred speech according to family members. Supportive care Continuous telemetry and continuous pulse ox MRI in a.m. Permissive hypertension Hydralazine 10 mg p.r.n. for systolic of 200 Neuro checks Q 2 MRI/MRA ordered which is pending CTA head and neck with no large vessel occlusion Echocardiogram ordered recent echocardiogram with severe systolic dysfunction ejection fraction 15-20%. Check for any thrombus on repeat echocardiogram (3) Systolic CHF, acute on chronic: Code(s): I50.23 - Acute on chronic systolic (congestive) heart failure Status: Acute Assessment and Plan: Patient with elevated brain natriuretic peptide over 25,000 Echocardiogram from 03/12/2021 reviewed ejection fraction of 15-20% Patient's home medications reviewed and noted to be on spironolactone, losartan, metoprolol and hydralazine. Daily intake and output, Mendi[place] catheter to be placed. Daily weights EKG reviewed Cardiology consulted Elevated troponin as well Possibility of LV thrombus/cardiogenic stroke is there however with large area of involvement high risk for hemorrhagic conversion will avoid any anticoagulants therapy in acute stays Limited echocardiogram to be ordered to rule out LV thrombus Cardiology has also been consulted for further evaluation BNP elevated likely chronic due to her low ejection fraction and pericardial effusion, clinically not volume overloaded will hold of aggressive diuresis at this time (4) Pericardial effusion without cardiac tamponade: Code(s): I31.3 - Pericardial effusion (noninflammatory) Status: Acute Assessment and Plan: Repeat echocardiogram in a.m. at this time patient is not showing signs of tamponade Cardiology for further evaluation of this pericardial effusion which is new (5) Infiltrate of lung present on imaging of chest: Code(s): R91.8 - Other nonspecific abnormal finding of lung field Status: Acute Assessment and Plan: Patient with multiple reasons for lung infiltrates given congestive heart failure possible atelectasis and likely aspiration Has been started on IV antibiotics Blood cultures in progress Continue to monitor She does have bilateral pleural effusion right more than left well visualized and a recent CT chest done on 03/12/2021 This may be tapped for further evaluation once she is more stable (6) Hypertension: Code(s): I10 - Essential (primary) hypertension Status: Acute Assessment and Plan: According to medical records from on primary care physicians since to be that patient has been having problems with the blood pressure controlled She is currently on hydralazine 100 mg p.o. b.i.d., losartan 100 mg p.o. daily, metoprolol tartrate 50 mg p.o. daily Will restart p.o. medications 1 patient's mental status improved enough to be awake and alert to take p.o. NPO at this time Allow permissive hypertension due to acute str
[2021-03-25] MEDS: ASPIRIN 300 MG SUPPOSITORY RECTAL (15:15)
--- NOTE | 2021-03-25 15:50 | PCSTNOTE ---
Therapist received order for Bedside Swallow Evaluation this date however AERIAL GUNNER was informed that patient is not able to safely participate in evaluation task this date. Therapist will attempt Bedside Swallow Evaluation tomorrow .
[2021-03-25 16:13] LABS: SARS-CoV-2 RNA PCR Positive (Negative)
--- NOTE | 2021-03-25 16:48 | PM.CNCAR ---
Assessment and Plan Assessment and plan (1) Acute stroke due to ischemia: Code(s): I63.9 - Cerebral infarction, unspecified Status: Acute Assessment and Plan: Will defer to Neurology and hospitalist services. (2) Cardiomyopathy: Code(s): I42.9 - Cardiomyopathy, unspecified Status: Acute Assessment and Plan: Severe cardiomyopathy. She is not in acute heart failure at this point. If meaningful recovery, she will be need further workup for her cardiomyopathy. In the meantime, I would advise hydralazine losartan metoprolol and statin as able per hospitalist and Neurology care. Obviously some degree of permissive hypertension will be allowed again. I will defer blood pressure treatment to Neurology at this point. Would obviously use metoprolol or hydralazine if need be. No specific cardiac recommendations at this point (3) Hypertension associated with diabetes: Code(s): E11.59 - Type 2 diabetes mellitus with other circulatory complications; I15.2 - Hypertension secondary to endocrine disorders Status: Acute Assessment and Plan: As above (4) Pericardial effusion without cardiac tamponade: Code(s): I31.3 - Pericardial effusion (noninflammatory) Status: Acute Assessment and Plan: No tamponade (5) Elevated troponin: Code(s): R77.8 - Other specified abnormalities of plasma proteins Status: Acute Assessment and Plan: Insignificant and not related to acute plaque rupture from coronary disease. Much more likely related to either ischemic stroke, CHF, high blood pressure, renal failure. Prognosis is poor. Neurology has been notified by RN. Hospitalist has also been notified of patient's condition History of Present Illness History of Present Illness Consult date/time: 03/25/21 16:48 Requesting physician: Spencer Cuellar, CORE MAKER HELPER, BC Consult reason: Other (Cardiomyopathy, elevated troponin) Reason For Visit: CAP,CHF,hypoglycemia,elevated trop Narrative: Date of service 03/25/2021 Reason for consultation: Cardiomyopathy, positive troponins Requesting provider: Spencer Cuellar History patient is a 66-year-old female who has multiple medical problems including diabetes, congestive heart failure, peripheral vascular disease, GERD, hypertension, hyperlipidemia who presented to the emergency department after not responding to her phone. Family and friends became increasingly concerned found her in her bedroom with urinary incontinence and semiconscious. She was hypoglycemic and patient was brought to the emergency department further evaluation. History is obtained predominantly by reviewing chart record. Reportedly patient was having some slurred speech on Josue. Echocardiogram a couple of weeks ago showed an ejection fraction of 15-20% with pericardial effusion. Scanning of her brain showed an acute right middle cerebral artery infarction. She was outside the tPA window. Supportive care was recommended. Cardiology was consulted because of the poor ejection fraction. Review of Systems Review of Systems: ROS unobtainable: Yes unobtainable due to medical condition PMFSH Past Medical History Medical History Crying Diabetes Frequent urination High blood pressure Hot flashes Hyperlipidemia Leg pain Memory loss Swollen feet Weakness Surgical History Surgical History History of back surgery Family History Family History Mother Hypertension Sibling Alcoholism Heart problem Social History Social History Smoking packs per day: 0.75 Smoking cigarettes per day: 15.0 Years smoked: 40 Smoking pack-years: 30.00 Smoking status: Unknown if ever smoked Tobacco type: cigarettes Second hand tobacco smoke e
[2021-03-25 18:18] LABS: Glucose Point of Care 143 mg/dl (65-105)
[2021-03-25] MEDS: SODIUM CHLORIDE 0.9% IV 1,000 ML 60 ML IV CONT (18:38)
--- NOTE | 2021-03-25 20:05 | PC.NURSE ---
1710 @ 1640 received pt from ER to room 201- monitor on SR with PAC's - assessment completed, pt covid +; isolation initiated 170- Dr. Solano called - updated on condition- new orders received
[2021-03-25 23:20] LABS: Glucose Point of Care 177 mg/dl (65-105)
[2021-03-26] VITALS (29 sets, daily range): BP systolic 163–207; BP diastolic 67–85; PULSE 47–90; RESP 18–20; TEMP 35.5–36.8; O2SAT 89–100; BMI 26.2
--- NOTE | 2021-03-26 | ECHO_ITS ---
Patient Info Name: Isabel Wick Age: 66 years : 1955 Gender: Female Ht: 69 in Wt: 185 lbs BSA: 2.04 m2 HR: 50 bpm BP: 201 / 85 mmHg Heart Rhythm: Sinus Rhythm Exam Date: 03/26/2021 10:37 AM Exam Location: [facility] Pulmonary Patient Status: Inpatient Admit Date: 03/24/2021 Staff Ordering Physician: Neto Rizo MD Corrective Therapy Aide Teacher: Glenn Zuleta, [place], RT Attending Provider: Neto Rizo MD Referring Physician: Darrius TORRES; Exam Type: CA echo dop color flow w con Study Info Indications I63.219 - Cerebral infarction due to unspecified occlusion or stenosis of unspecified vertebral arteries Strain analysis performed. Complete two-dimensional, color flow and Doppler transthoracic echocardiogram is performed with contrast to opacify the left ventricle and to improve the deliniation of the left ventricle endocardial borders. Summary 1. Left ventricular chamber dimension is severely enlarged. 2. Left ventricular systolic function is severely reduced, estimated at 15-20%. 3. There is severe concentric increased left ventricular wall thickness. 4. The left ventricular diastolic function is grade I diastolic dysfunction. 5. There is no thrombus visualized in the left ventricle. 6. Global longitudinal strain is abnormal at -8 %. 7. Right ventricular systolic function is reduced. 8. Left atrial chamber dimension is moderately enlarged. 9. There is moderate aortic valve sclerosis. 10. There is mild tricuspid valve regurgitation. 11. There is mild pulmonic regurgitation. 12. There is moderate pericardial effusion. 13. Strain analysis performed. 14. Complete two-dimensional, color flow and Doppler transthoracic echocardiogram is performed with contrast to opacify the left ventricle and to improve the deliniation of the left ventricle endocardial borders. Left Ventricle Left ventricular chamber dimension is severely enlarged. Left ventricular systolic function is severely reduced, estimated at 15-20%. There is severe concentric increased left ventricular wall thickness. The left ventricular diastolic function is grade I diastolic dysfunction. There is no thrombus visualized in the left ventricle. Global longitudinal strain is abnormal at -8 %. Right Ventricle Right ventricular chamber dimension is normal. Right ventricular systolic function is reduced. Left Atria Left atrial chamber dimension is moderately enlarged. Right Atria Right atrial chamber dimension is normal. Atrial Septum Intact interatrial septum visualized by color flow imaging. Aortic Valve The aortic valve is trileaflet. There is moderate aortic valve sclerosis. There is no aortic valve stenosis. There is trace aortic valve regurgitation. There is mild aortic valve calcification. Pulmonic Valve The pulmonic valve is normal. There is no pulmonic valve stenosis. There is mild pulmonic regurgitation. Mitral Valve The mitral valve has normal leaflets. There is no mitral valve stenosis. There is trace mitral valve regurgitation. Tricuspid Valve The tricuspid valve leaflets are normal. There is no significant tricuspid valve stenosis. There is mild tricuspid valve regurgitation. No pulmonary hypertension, estimated pulmonary arterial systolic pressure is 33 mmHg. Pericardium/Pleural The pericardium appears normal. There is moderate pericardial effusion. Inferior Vena Cava Normal inferior vena cava with <50% collapse upon inspiration consistent with elevate
[2021-03-26 02:15] LABS: INR 1.4
[2021-03-26] MEDS: ETOMIDATE 20 MG/10 ML AMPUL IV PUSH (02:34)
[2021-03-26] MEDS: ROCURONIUM BROMIDE 50 MG/5 ML VIAL 20 MG IV PUSH (02:38)
--- NOTE | 2021-03-26 02:49 | WPDPROCEDUR ---
Procedures Intubation Intubation Date: 03/26/21 Intubation Time: 03:37 A pre-procedural Time-Out was completed immediately before starting the procedure and confirmed: Patient Identification, Site, Procedure, Patient Position and the Availability of Requisite Equipment: Yes Sedative: etomidate Mg given: 20 Paralytic: rocuronium Mg given: 50 Laryngoscope: fiber optic video scope ET tube size: cuffed Tube secured depth (cm): 28 Tube secured location: lips Tube placement confirmation: visualized tube passing through cords, equal breath sounds bilaterally, no breath sounds over epigastrium and confirmation by capnometry Patient tolerated procedure: well Intubation complications: none Additional comments: The patient had thick copious green secretions in posterior oropharynx at the level of the epiglottis.
--- NOTE | 2021-03-26 02:51 | P.RRN_ITS ---
Critical Care Event Note Summary Code activated: No Narrative: 03/26/2021 at 1:40 a.m. Nursing staff called to notify me the patient's systolic blood pressures when the 220 systolic. They also noted that the patient had rapidly progressive hypoxia. The patient had been on room air at the beginning of the shift and nursing staff is going to tell me that the patient was on and non-rebreather satting in the low 80s. RT was in with the patient placing the patient on Airvo with non-rebreather. I went down shortly after to evaluate the patient and found the patient with Airvo in place but the patient had pulled a non- rebreather off. Despite being placed back on the non-rebreather the patient was still only satting 82% on Airvo at 50 L and 90%. The patient was only mumbling and not following commands. She did respond to painful in noxious stimuli. She remains with flaccid paralysis of the left upper and lower extremity. The patient's case was discussed with the stockroom attendant. Plan was to transfer patient to the ICU for intubation. With pre oxygenation the patient was satting 90%. Patient received rocuronium and etomidate and was intubated with a glide scope without complication. At the time of intubation the patient did have a large amount of thick green mucus/secretions sitting at the epiglottis. Patient was intubated with 7.5 ET tube measuring 28 at the lip. Chest x-ray was reviewed and demonstrated ET tube was 2 cm from the chito and subsequently an order was given to draw all ET tube back 2 cm. The patient was placed on vent AC/CMV tidal volume of 350 rate of 18 peep 5. Sedation was provided with fentanyl and Versed. Patient tolerated the procedure well. Given the patient's diagnosis of COVID and rapid development of oxygen requirement Remdesivir and Actemra after discussion with the patient's brother. Code status was confirmed with patient's brother prior to intubation. 1. Acute hypoxic respiratory failure---the patient was vaccinated with Moderna vaccine and received her 2nd vaccine less than 6 months ago. Patient does have COVID and x-ray is not consistent with pneumonia. Remdesivir, Actemra and Decadron are ordered. The patient is on higher dose Decadron therapy due to concern for cerebral edema given her large MCA stroke. The patient is at high risk for aspiration given her recent stroke will also cover with antibiotic therapy for possible aspiration especially given large amount of green secretions noted at the epiglottis. Will attempt to send sputum 1st culture. 2. 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 Neurology has been consulted. Unfortunately MRI was not performed prior to intubation and we do not have the ability to perform an MRI on a patient that is ventilated. 1 hour and 40 minutes spent in critical care activities. This case had a high probability of a clinically significant, sudden, or life threatening deterioration of this patient's condition which required my full and direct attention, intervention and personal management. Critical care time: 75 - 104 mins
[2021-03-26] MEDS: FENTANYL 2,500MCG/NS250ML(*CRX 2,500 MCG/250 ML BAG IV CONT (02:55)
[2021-03-26] MEDS: MIDAZOLAM 100MG/NS 100ML(*CRX) 100 MG/100 ML BAG IV CONT (02:55)
[2021-03-26] MEDS: REMDESIVIR 200 MG/NS 250 ML 200 MG/250 ML BAG 250 MG IVPB (03:10)
[2021-03-26] MEDS: METOPROLOL TARTRATE INJ 5 MG/5 ML VIAL IV PUSH (04:17)
[2021-03-26] MEDS: AMPICILLIN SULB 3 GM/NS 100 ML 3 GM/100 ML VIAL IVPB ×4 (04:51→21:21)
[2021-03-26 07:05] LABS: Alveolar/Arterial O2 Gradient 343.5 mmHg; Base Excess ABG 1.3 mEq/l (+/-2.0); Carboxyhemoglobin 0.3 % THb (0-2.0); Fractional Inspired Oxygen 100 %; HCO3 ABG 27.2 mEq/l (22.0-26.0); Methemoglobin ABG 0.7 %THb (0-1.5); Oxygen Content ABG 20.5 %vol (16.0-22.0); Oxygen Saturation ABG 99.7 % (95.0-100.0); Oxyhemoglobin 98.1 % THb (90.0-100.0); PO2 ABG 321.5 mmHg (80.0-100.0); PO2 FiO2 Ratio Arterial Blood 3.21 %; Reduced Hemoglobin 0.9 %THb (0-5.0); Total Hemoglobin 14.3 g/dL (12.0-18.0); pH ABG 7.371 (7.350-7.450)
[2021-03-26 07:06] LABS: Arterial Blood Gas PEEP 5 cmH2O; Arterial Blood Gas Tidal Volume 350 ml; Arterial Blood Gas Vent Mode CMV; Arterial Blood Gas Ventilator rate 18 /MIN; Device VENTILATOR; Modified Allen's Test Unable to perform; Site Drawn RIGHT RADIAL
[2021-03-26] MEDS: INSULIN ASPART (*BKC) 100 UNITS/ML SUB-Q ×2 (08:16→18:03)
[2021-03-26 08:21] LABS: Glucose Point of Care 215 mg/dl (65-105)
[2021-03-26] MEDS: MINERAL OIL/WHITE PETROLATUM OINTMENT 1 APPLIC EACH EYE ×2 (09:17→21:22)
[2021-03-26] MEDS: SODIUM CHLORIDE 0.9% IV 1,000 ML 60 ML IV CONT (09:17)
[2021-03-26] MEDS: ASPIRIN 300 MG SUPPOSITORY RECTAL (09:18)
--- NOTE | 2021-03-26 09:37 | PCSTNOTE ---
Patient has orders for Bedside Swallow Evaluation and also Communication evaluation however she was seen for rapid response overnight and is now intubated. These orders are discharged and may be re-ordered when patient condition improves.
--- NOTE | 2021-03-26 09:39 | PM.PNCARD ---
Progress Note: A&P Assessment and Plan (1) Acute stroke due to ischemia: Code(s): I63.9 - Cerebral infarction, unspecified Status: Acute Assessment and Plan: Will defer to Neurology and hospitalist services. (2) Cardiomyopathy: Code(s): I42.9 - Cardiomyopathy, unspecified Status: Acute Assessment and Plan: Severe cardiomyopathy. If meaningful recovery, she will be need further workup for her cardiomyopathy. In the meantime, I would advise hydralazine losartan metoprolol and statin as able per hospitalist and Neurology care. Obviously some degree of permissive hypertension will be allowed again. I will defer blood pressure treatment to Neurology at this point. Would obviously use metoprolol or hydralazine IV if need be. (3) Hypertension associated with diabetes: Code(s): E11.59 - Type 2 diabetes mellitus with other circulatory complications; I15.2 - Hypertension secondary to endocrine disorders Status: Acute Assessment and Plan: As above (4) Pericardial effusion without cardiac tamponade: Code(s): I31.3 - Pericardial effusion (noninflammatory) Status: Acute Assessment and Plan: No tamponade (5) Elevated troponin: Code(s): R77.8 - Other specified abnormalities of plasma proteins Status: Acute Assessment and Plan: Insignificant and not related to acute plaque rupture from coronary disease. Much more likely related to either ischemic stroke, CHF, high blood pressure, renal failure. Prognosis is poor. Neurology has been notified by RN. Hospitalist has also been notified of patient's condition (6) COVID: Code(s): U07.1 - COVID-19 Status: Acute Assessment and Plan: Intubated Subjective Date/time seen: 03/26/21 09:39 Interval history: 66-year-old admitted for stroke Date of service 03/26/2021: She did rapidly decompensate last night. She did require intubation. Currently in sinus rhythm Review of Systems Review of Systems: ROS unobtainable: Yes unobtainable due to medical condition Exam Narrative: Intubated HENMT: General nose exam: Normal nares present Chest: Other: No chest deformities Cardio: Rate: regular rate Rhythm: regular rhythm Skin: General skin exam: normal color Objective Data Vital Signs Vital Signs: Vital Signs - 24 hr 03/25/21 12:40 03/25/21 15:17 03/25/21 16:00 Temperature 36.3 C L Pulse Rate 67 66 69 Respiratory Rate 14 18 24 H Blood Pressure 194/83 H 192/78 H 178/77 H Pulse Oximetry 95 97 100 03/25/21 16:35 03/25/21 16:50 03/25/21 20:00 Temperature 36.2 C L Pulse Rate 69 66 79 Respiratory Rate 24 H 20 Blood Pressure 178/77 H 216/80 H Pulse Oximetry 100 95 03/25/21 22:00 03/25/21 23:05 03/26/21 00:00 Temperature 36.8 C Pulse Rate 76 70 73 Respiratory Rate 20 Blood Pressure 218/87 H Pulse Oximetry 90 89 L 03/26/21 01:10 03/26/21 01:30 03/26/21 02:00 Temperature Pulse Rate 84 Respiratory Rate Blood Pressure 207/67 H Pulse Oximetry 89 L 03/26/21 02:30 03/26/21 02:55 03/26/21 03:15 Temperature 36.7 C Pulse Rate 90 85 87 Respiratory Rate 18 18 Blood Pressure 201/85 H Pulse Oximetry 96 100 03/26/21 03:30 03/26/21 03:45 03/26/21 04:00 Temperature Pulse Rate 82 75 72 Respiratory Rate 18 18 18 Blood Pressure Pulse Oximetry 03/26/21 04:15 03/26/21 04:17 03/26/21 04:45 Temperature Pulse Rate 75 64 65 Respiratory Rate 18 18 Blood Pressure Pulse Oximetry 03/26/21 06:46 Temperature Pulse Rate Respiratory Rate Blood Pressure Pulse Oximetry 100 Intake/Output Intake/Output: Intake & Output 03/23/21 03/24/21 03/25/21 03/26/21 23:59 23:59 23:59 23:59 Intake Total 50 250 1350 Output Total 100 1925 350 Balance -50 -7498 1000 Meds/Results Medications: Active Medications Generic Name Dose Route Start Last Admin Trade Name Freq PRN Reason Stop Dose A
--- NOTE | 2021-03-26 10:32 | PCPTNOTE ---
Patient has been intubated since PT orders were placed. We will d/c this order and it can be re-ordered when that patient is more appropriate to participate in therapy.
--- NOTE | 2021-03-26 10:41 | PCOTNOTE ---
Patient has been intubated since OT orders were placed. We will d/c this order and it can be re-ordered when that patient is more appropriate to participate in therapy.
[2021-03-26 10:53] LABS: Alanine Aminotransferase 17 U/L (4-35); Estimated CRCL calculation 42 ml/min; Estimated Glomerular Filt Rate 54
[2021-03-26] MEDS: PERFLUTREN LIPID MICROSPHERES 1.5 ML VIAL DILUTED TO 10 ML TOTAL VOLUME (11:02)
[2021-03-26 11:14] LABS: INR 1.4; Prothrombin Time 16.9 Seconds (11.1-14.7)
[2021-03-26 12:16] LABS: Glucose Point of Care 186 mg/dl (65-105)
--- NOTE | 2021-03-26 12:57 | WPDNEURCNPN ---
Assessment and Plan Additional Plan considering cardiac status, patient was not ideal candidate for the wheel cerebral artery thrombectomy after extended period of time lapse, needed only conservative treatment and considering other general status consult has been provided to the brother who agrees with the present plan of treatment Consult date: 03/26/21 HPI: Isabel Wick is a 66 year old female admitted to the hospital for the complaints of acute right middle cerebral artery stroke with patient being out of window for tPA +20 4 hours and also with information that she was noted to have slurred speech on [place] gathering additionally patient has ongoing history of 1. Type 2 diabetes mellitus 2. Congestive heart failure 3. Peripheral vascular disease with claudication 4. GERD 5. Hypertension patient was reportedly brought to the hospital via EMS when she was noted to not respond to her phone when family became increasingly concerned and she was found in her bedroom with urine incontinence in semi unconscious stat with a blood sugar of only 40 as per the information available from the family patient was noted to have a slurred speech on [place] and patient's was not contacted for the last couple of days in the emergency room a CT scan of the head was consistent with infarct she has multiple other abnormalities but most recent chest x-ray documented increasing pericardial in 5 effusion. Patient does have ongoing history of memory dysfunction and generalized weakness with edema of the feet, history of 40 years smoked currently everyday smoker 15 cigarettes per day but no alcohol drinking, outpatient medications included aspirin 81 mg daily, gabapentin 300 mg daily, rosuvastatin 20 mg daily, treatment for diabetes mellitus, each site a low prime 20 mg daily and treatment for hypertension as well, evaluation up until now with CT scan showing chronic left caudate nucleus lacunar infarct, CT of cervical spine with cervical spondylosis but no fracture or dislocation, head neck CTA with right M1 occlusion likely acute thrombus developing large MCA acute infarction ultrasound of abdomen with cholelithiasis, question was raised regarding the possibility of transfer to the tertiary care for thrombectomy but patient was with multiple medical problems and significant time delay would not be likely candidate for the middle cerebral artery thrombectomy, patient has been seen by the senior test engineer with severe cardiomyopathy for which medications have been adjusted and patient has been noted to have noninflammatory pericardial effusion as well Review of Systems Review of Systems: All systems reviewed & are unremarkable except as noted in HPI and below PMFSH Past Medical History Medical History Crying Diabetes Frequent urination High blood pressure Hot flashes Hyperlipidemia Leg pain Memory loss Swollen feet Weakness Surgical History Surgical History History of back surgery Family History Family History Mother Hypertension Sibling Alcoholism Heart problem Social History Social History Smoking packs per day: 0.75 Smoking cigarettes per day: 15.0 Years smoked: 40 Smoking pack-years: 30.00 Smoking status: Unknown if ever smoked Tobacco type: cigarettes Second hand tobacco smoke exposure: No Alcohol intake: unknown Substance use: unknown Substance use type: does not use Spiritual care concerns: No Meds Home Medications and Allergies Home Medications Medication Instructions Recorded Confirmed Type gabapentin 300 mg capsule 300 mg PO DAILY #90 cap 01/30/21 03/25/21 Rx rosuvastatin 20 mg tablet 20 mg PO DAILY #30 tablet 01/30/21 03/25/21 Rx sitagliptin 50 mg-metformin 500 mg 1 tablet PO BID #90 tablet 01/30/21 03/25/21 Rx table
[2021-03-26] MEDS: hydrALAZINE HCL 20 MG/ML VIAL 10 MG IV PUSH (13:11)
--- NOTE | 2021-03-26 14:46 | WPDCNINT ---
Assessment and Plan Assessment and plan (1) Acute respiratory failure: Code(s): J96.00 - Acute respiratory failure, unspecified whether with hypoxia or hypercapnia Status: Acute Assessment and Plan: Patient was hypoxic, unresponsive, possible due to acute large MCA stroke. Causing [place] triad, also could be related to COVID-19 pneumonia -patient was intubated overnight. -patient is currently on peep of 5 and 100% FiO2. ABG chest x-ray reviewed, wean FiO2 60%. Also may changes to the ventilator, will increase tidal volume to 400 and continue rate at 18. -patient may require a hyperventilation due to increased intracranial pressure -sedated with fentanyl and Versed infusion, have asked the bedside RN to decrease to off and see how the patient does (2) Stroke: Code(s): I63.9 - Cerebral infarction, unspecified Status: Acute Assessment and Plan: Patient presented with altered mental status with weakness on the left upper and lower extremity, patient also has had a facial droop and she had some slurring of speech since [place] according the family that is mention in the medical records. CTA Head and neck on 03/25/2021: Showed Right M1 occlusion likely acute thrombus, subsequent developing large MCA acute infarction. 2. Bilateral carotid bulb 0% stenosis. -patient was outside of the tPA window -appreciate Neurology evaluation and recommendation -patient is on Decadron 10 mg q.6 IV per neurology (3) COVID: Code(s): U07.1 - COVID-19 Status: Acute Assessment and Plan: Patient also tested positive for COVID -continue dexamethasone -continue remdesivir -continue droplet, airborne and contact isolation/precautions (4) Tobacco abuse: Code(s): Z72.0 - Tobacco use Status: Acute Assessment and Plan: Current history of tobacco use, patient is intubated and sedated and unable to counseled patient on cessation (5) Peripheral vascular disease: Code(s): I73.9 - Peripheral vascular disease, unspecified Status: Acute Assessment and Plan: 12/24/2020 ankle and brachial index was done: Arterial occlusive disease to the bilateral lower limbs with mild to moderately decreased bilateral ABIs and mildly decreased right and mild to moderately decreased left TBIs (6) Hypertension: Code(s): I10 - Essential (primary) hypertension Status: Acute Assessment and Plan: Patient with history of essential hypertension, she has been running in the [employer] to 220s -patient is on p.r.n. hydralazine to maintain SBP between 160-180 mmHg. (7) Cardiomyopathy: Code(s): I42.9 - Cardiomyopathy, unspecified Status: Acute Assessment and Plan: Severe cardiomyopathy Echocardiogram done on 03/26/2021: Showed an LV systolic is severely reduced, EF of 15-20%. LV chamber dimension is severely enlarged, severe concentric LV wall thickness. Grade 1 diastolic dysfunction RV systolic function is reduced, moderate a gout attack valve sclerosis moderate pericardial effusion -cardiology following the patient, patient is bradycardic which could be related to elevated intracranial pressure. Will hold metoprolol, losartan per Cardiology. -will continue to monitor systolic blood pressures in use IV hydralazine p.r.n. to maintain SBP between 160-180 mmHg given large MCA stroke (8) Pericardial effusion without cardiac tamponade: Code(s): I31.3 - Pericardial effusion (noninflammatory) Status: Acute Assessment and Plan: Moderate pericardial effusion as seen on echocardiogram as above, no tamponade physiology at this time. Continue to monitor (9) Diabetes: Code(s): E11.9 - Type 2 diabetes mellitus without complications Status: Acute Assessment and Plan: Continue sliding scale insulin and Accu-Cheks Additional Plan Discuss with brother, Gerson. Dr. Solano was also present for the meeting. We both updated him on patient's condition, p
--- NOTE | 2021-03-26 16:58 | PCFNICU ---
ICU Rounding Note: Pt current nutrition is NPO. Last recorded weight is 80.7 kg. Bowel Motility: No BM reported Labs Reviewed: Glu 215 Meds Noted: unasyn, decadron, fentanyl, apresoline, versed Skin: WNL Additional Notes: Pt was intubated on 03/26/21 and is on mechanical ventilation. Per EMR, current nutrition is NPO. Recommend initiating tube feeding of vital AF 1.2 at 20mL/hr over 22 hours providing 528kcal, 33g of protein, and 981mL of water. Recommend increasing feeding rate by 20mL/hr every q 4 hours until a goal rate of 55mL/hr is met. Goal rate of Vital AF 1.2 will provide 1452kcal, 91g of protein, and 981mL of water, meeting 100% of kcal and protein needs. Agree with diet order at this time. Will continue to follow. Following daily in ICU rounds. Monitor every T/F
[2021-03-26 20:28] LABS: Glucose Point of Care 208 mg/dl (65-105)
[2021-03-26] MEDS: REMDESIVIR 100 MG/NS 250 ML 100 MG/250 ML BAG 250 MG IVPB (21:21)
[2021-03-27] VITALS (21 sets, daily range): BP systolic 173–184; BP diastolic 62–75; PULSE 54–83; RESP 18–19; TEMP 36–37.1; O2SAT 98–100
[2021-03-27 00:21] LABS: Glucose Point of Care 139 mg/dl (65-105)
[2021-03-27] MEDS: hydrALAZINE HCL 20 MG/ML VIAL 10 MG IV PUSH ×3 (01:18→23:44)
[2021-03-27] MEDS: SODIUM CHLORIDE 0.9% IV 1,000 ML 60 ML IV CONT (01:19)
[2021-03-27] MEDS: AMPICILLIN SULB 3 GM/NS 100 ML 3 GM/100 ML VIAL IVPB ×4 (04:00→21:16)
[2021-03-27 05:19] LABS: Hematocrit 47.6 % (37.0-47.0); Hemoglobin 14.8 g/dL (12.0-15.0); Mean Corpuscular HGB Conc 31.1 g/dl (32-36); Mean Corpuscular Hemoglobin 30.8 pg (26-34); Mean Corpuscular Volume 99.2 fl (80-100); Mean Platelet Volume 9.7 fl (7.4-10.4); Platelet Count Result 300 k/mm3 (150-375); Red Cell Distribution Width 14.3 % (11.5-14.5); White Blood Count 9.1 K/mm3 (4.5-10.0)
[2021-03-27 05:35] LABS: INR 1.6; Prothrombin Time 18.7 Seconds (11.1-14.7)
[2021-03-27 05:56] LABS: Alanine Aminotransferase 16 U/L (4-35); Albumin Level 3.6 g/dL (3.5-5.1); Alkaline Phosphatase 80 U/L (38-126); Anion Gap 8 mmol/L (8-16); Aspartate Amino Transferase 25 U/L (14-36); Bilirubin,Total 0.5 mg/dL (0.2-1.3); Blood Urea Nitrogen 43 mg/dL (7-17); CRP 3.3 mg/dL (<1.0); Calcium 9.2 mg/dL (8.4-10.2); Carbon Dioxide 28 mmol/L (22-30); Chloride 109 mmol/L (98-107); Estimated CRCL calculation 42 ml/min; Estimated Glomerular Filt Rate 54; Glucose 169 mg/dL (65-110); Lactate Dehydrogenase 609 U/L (313-618); Potassium 3.6 mmol/L (3.4-5.0); Sodium 145 mmol/L (137-145)
[2021-03-27 06:09] LABS: Alveolar/Arterial O2 Gradient 50.4 mmHg; Carboxyhemoglobin 0.1 % THb (0-2.0); Fractional Inspired Oxygen 25 %; HCO3 ABG 26.7 mEq/l (22.0-26.0); Methemoglobin ABG 0.6 %THb (0-1.5); Oxygen Content ABG 20.1 %vol (16.0-22.0); Oxygen Saturation ABG 94.2 % (95.0-100.0); Oxyhemoglobin 92.1 % THb (90.0-100.0); PCO2 ABG 46.5 mmHg (35.0-45.0); PO2 ABG 72.6 mmHg (80.0-100.0); Reduced Hemoglobin 7.2 %THb (0-5.0); Total Hemoglobin 15.5 g/dL (12.0-18.0); pH ABG 7.377 (7.350-7.450)
[2021-03-27 06:11] LABS: Arterial Blood Gas PEEP 5 cmH2O; Arterial Blood Gas Tidal Volume 400 ml; Arterial Blood Gas Vent Mode CMV; Arterial Blood Gas Ventilator rate 18 /MIN; Device VENTILATOR; Modified Allen's Test Pass; Site Drawn LEFT RADIAL
[2021-03-27] MEDS: MINERAL OIL/WHITE PETROLATUM OINTMENT 1 APPLIC EACH EYE ×2 (08:27→20:48)
[2021-03-27] MEDS: ASPIRIN 300 MG SUPPOSITORY RECTAL (08:27)
--- NOTE | 2021-03-27 10:41 | PC.NURSE ---
Found patient on Fentanyl @ 50mcg/hr and Versed @ 2mg/hr upon morning assessment. Prior RN did inform me of these rates during morning report, but these rates were not charted by prior RN. Will inform her so she can correct charting.
--- NOTE | 2021-03-27 11:22 | PCFNICU ---
ICU Rounding Note: Pt current nutrition is NPO. Last recorded weight is 82.2 kg. Bowel Motility: No new BM document, active bowel sounds Labs Reviewed: hct 47.6, Cl 109, GFR 54, BUN 43, Cr 1.20, Glu 169 Meds Noted: decadron, fentanyl, apresoline hcl, versed Skin: WNL Additional Notes: Pt was intubated on 03/25/21 and remains on mechanical ventilation. Placed orders to start tube feeding of Vital AF 1.2 running at 10mL/hr over 22 hours providing 264kcal, 17g protein, and 178mL of water. Recommend increasing feeding rate by 20mL/hr until goal rate of 50mL/hr is reached, as tolerated by pt. Vital AF 1.2 running at goal rate of 50mL/hr will provide 1320kcal, 83g of protein, and 892mL of water, and will meet 88% of kcal needs and 100% of protein needs. Per physician on staff, pt may be a candidate for comfort care, waiting for family to decide. Agree with diet order at this time. Will continue to follow. Following daily in ICU rounds. Will monitor every T/F.
--- NOTE | 2021-03-27 12:11 | WPDINTPN ---
Progress Note: A&P Assessment and Plan (1) Acute respiratory failure: Code(s): J96.00 - Acute respiratory failure, unspecified whether with hypoxia or hypercapnia Status: Acute Assessment and Plan: Patient was hypoxic, unresponsive, possible due to acute large MCA stroke. Causing [place] triad, also could be related to COVID-19 pneumonia -patient was intubated overnight. -patient is currently on peep of 5 and 25% FiO2. ABG chest x-ray reviewed, A -patient may require a hyperventilation due to increased intracranial pressure -wean off fentanyl and Versed infusion to better evaluate neurological status, (2) Stroke: Code(s): I63.9 - Cerebral infarction, unspecified Status: Acute Assessment and Plan: Patient presented with altered mental status with weakness on the left upper and lower extremity, patient also has had a facial droop and she had some slurring of speech since [place] according the family that is mention in the medical records. CTA Head and neck on 03/25/2021: Showed Right M1 occlusion likely acute thrombus, subsequent developing large MCA acute infarction. 2. Bilateral carotid bulb 0% stenosis. -patient was outside of the tPA window -appreciate Neurology evaluation and recommendation -patient is on Decadron 10 mg q.6 IV per neurology (3) COVID: Code(s): U07.1 - COVID-19 Status: Acute Assessment and Plan: Patient also tested positive for COVID -continue dexamethasone -continue remdesivir -continue droplet, airborne and contact isolation/precautions (4) Tobacco abuse: Code(s): Z72.0 - Tobacco use Status: Acute Assessment and Plan: Current history of tobacco use, patient is intubated and unable to counseled patient on cessation (5) Peripheral vascular disease: Code(s): I73.9 - Peripheral vascular disease, unspecified Status: Acute Assessment and Plan: 12/24/2020 ankle and brachial index was done: Arterial occlusive disease to the bilateral lower limbs with mild to moderately decreased bilateral ABIs and mildly decreased right and mild to moderately decreased left TBIs (6) Hypertension: Code(s): I10 - Essential (primary) hypertension Status: Acute Assessment and Plan: Patient with history of essential hypertension, she has been running in the 180s to 220s -patient is on p.r.n. hydralazine to maintain SBP between 160-180 mmHg. (7) Cardiomyopathy: Code(s): I42.9 - Cardiomyopathy, unspecified Status: Acute Assessment and Plan: Severe cardiomyopathy Echocardiogram done on 03/26/2021: Showed an LV systolic is severely reduced, EF of 15-20%. LV chamber dimension is severely enlarged, severe concentric LV wall thickness. Grade 1 diastolic dysfunction RV systolic function is reduced, moderate a gout attack valve sclerosis moderate pericardial effusion -cardiology following the patient, patient is bradycardic which could be related to elevated intracranial pressure. Will hold metoprolol, losartan per Cardiology. -will continue to monitor systolic blood pressures in use IV hydralazine p.r.n. to maintain SBP between 160-180 mmHg given large MCA stroke (8) Pericardial effusion without cardiac tamponade: Code(s): I31.3 - Pericardial effusion (noninflammatory) Status: Acute Assessment and Plan: Moderate pericardial effusion as seen on echocardiogram as above, no tamponade physiology at this time. Continue to monitor (9) Diabetes: Code(s): E11.9 - Type 2 diabetes mellitus without complications Status: Acute Assessment and Plan: Continue sliding scale insulin and Accu-Cheks Additional Plan 03/26: Discuss with brother, Gerson. Dr. Solano was also present for the meeting. We both updated him on patient's condition, plan of care we did let him know that patient has had a large MCA stroke, and that she will be developing some damage on the other side also due to inc
[2021-03-27 12:15] LABS: Glucose Point of Care 175 mg/dl (65-105)
[2021-03-27] MEDS: LACTATED RINGERS 1,000 ML 75 ML IV CONT (12:48)
[2021-03-27] MEDS: LIDOCAINE HCL 1% PF INJ 5 ML VIAL INFILTRATE (13:40)
[2021-03-27 18:06] LABS: Glucose Point of Care 183 mg/dl (65-105)
[2021-03-27] MEDS: REMDESIVIR 100 MG/NS 250 ML 100 MG/250 ML BAG 250 MG IVPB (21:16)
[2021-03-27] MEDS: CENTRAL LINE FLUSH 10 ML IV PUSH (23:45)
[2021-03-28] VITALS (18 sets, daily range): BP systolic 166–200; BP diastolic 54–79; PULSE 6–83; RESP 18–20; TEMP 36.6–37.1; O2SAT 98–100; BMI 27.1
[2021-03-28] LABS: Glucose Point of Care 244 mg/dl (65-105)
[2021-03-28] MEDS: INSULIN ASPART (*BKC) 100 UNITS/ML SUB-Q ×4 (00:20→18:23)
[2021-03-28 04:18] LABS: Hematocrit 42.8 % (37.0-47.0); Hemoglobin 13.4 g/dL (12.0-15.0); Mean Corpuscular HGB Conc 31.3 g/dl (32-36); Mean Corpuscular Hemoglobin 31.2 pg (26-34); Mean Corpuscular Volume 99.8 fl (80-100); Mean Platelet Volume 9.8 fl (7.4-10.4); Platelet Count Result 295 k/mm3 (150-375); Red Blood Count 4.29 M/mm3 (4.2-5.4); Red Cell Distribution Width 14.5 % (11.5-14.5)
[2021-03-28 04:32] LABS: INR 1.9
[2021-03-28 04:35] LABS: Alveolar/Arterial O2 Gradient 54.2 mmHg; Base Excess ABG 2.5 mEq/l (+/-2.0); Carboxyhemoglobin 0.3 % THb (0-2.0); Fractional Inspired Oxygen 25 %; HCO3 ABG 27.1 mEq/l (22.0-26.0); Methemoglobin ABG 0.7 %THb (0-1.5); Oxygen Content ABG 19.3 %vol (16.0-22.0); Oxygen Saturation ABG 95.2 % (95.0-100.0); Oxyhemoglobin 92.8 % THb (90.0-100.0); PCO2 ABG 42.1 mmHg (35.0-45.0); PO2 ABG 74.1 mmHg (80.0-100.0); PO2 FiO2 Ratio Arterial Blood 2.96 %; Reduced Hemoglobin 6.2 %THb (0-5.0); Total Hemoglobin 14.8 g/dL (12.0-18.0); pH ABG 7.427 (7.350-7.450)
[2021-03-28 04:36] LABS: Device VENTILATOR; Modified Allen's Test Pass; Site Drawn LEFT RADIAL
[2021-03-28 04:37] LABS: Arterial Blood Gas PEEP 5 cmH2O; Arterial Blood Gas Tidal Volume 400 ml; Arterial Blood Gas Vent Mode CMV; Arterial Blood Gas Ventilator rate 18 /MIN
[2021-03-28] MEDS: AMPICILLIN SULB 3 GM/NS 100 ML 3 GM/100 ML VIAL IVPB ×4 (04:50→21:17)
[2021-03-28 04:54] LABS: Alanine Aminotransferase 16 U/L (4-35); Albumin Level 2.9 g/dL (3.5-5.1); Alkaline Phosphatase 68 U/L (38-126); Anion Gap 7 mmol/L (8-16); Aspartate Amino Transferase 23 U/L (14-36); Bilirubin,Total 0.4 mg/dL (0.2-1.3); Blood Urea Nitrogen 63 mg/dL (7-17); Calcium 8.9 mg/dL (8.4-10.2); Carbon Dioxide 29 mmol/L (22-30); Chloride 109 mmol/L (98-107); Estimated CRCL calculation 32 ml/min; Estimated Glomerular Filt Rate 39; Glucose 278 mg/dL (65-110); Potassium 3.4 mmol/L (3.4-5.0); Sodium 145 mmol/L (137-145)
[2021-03-28] MEDS: CENTRAL LINE FLUSH 10 ML IV PUSH ×3 (05:33→21:42)
[2021-03-28 05:40] LABS: Glucose Point of Care 276 mg/dl (65-105)
[2021-03-28] MEDS: POTASSIUM CHLORIDE 20 MEQ PACKET (FOR LIQUID) 40 MEQ FEED TUBE (08:43)
[2021-03-28] MEDS: INSULIN GLARGINE (*BKC) 100 UNITS/ML 7 UNITS SUB-Q (08:46)
[2021-03-28] MEDS: ASPIRIN 300 MG SUPPOSITORY RECTAL (08:51)
[2021-03-28] MEDS: MINERAL OIL/WHITE PETROLATUM OINTMENT 1 APPLIC EACH EYE ×2 (08:51→20:10)
[2021-03-28] MEDS: hydrALAZINE HCL 50 MG TABLET PO ×4 (08:51→20:10)
[2021-03-28] MEDS: hydrALAZINE HCL 20 MG/ML VIAL 10 MG IV PUSH (09:02)
[2021-03-28] MEDS: LOSARTAN POTASSIUM 50 MG TABLET PO (09:11)
--- NOTE | 2021-03-28 12:09 | WPDINTPN ---
Progress Note: A&P Assessment and Plan (1) Acute respiratory failure: Code(s): J96.00 - Acute respiratory failure, unspecified whether with hypoxia or hypercapnia Status: Acute Assessment and Plan: Patient was hypoxic, unresponsive, possible due to acute large MCA stroke. Causing [place] triad, also could be related to COVID-19 pneumonia -patient was intubated overnight. -patient is currently on peep of 5 and 25% FiO2. ABG chest x-ray reviewed, will place patient on ASV mode of ventilation, if she tolerates then will try her on pressure support ventilation -off all sedation (2) Stroke: Code(s): I63.9 - Cerebral infarction, unspecified Status: Acute Assessment and Plan: Patient presented with altered mental status with weakness on the left upper and lower extremity, patient also has had a facial droop and she had some slurring of speech since Josue according the family that is mention in the medical records. CTA Head and neck on 03/25/2021: Showed Right M1 occlusion likely acute thrombus, subsequent developing large MCA acute infarction. 2. Bilateral carotid bulb 0% stenosis. -patient was outside of the tPA window -appreciate Neurology evaluation and recommendation -patient is on Decadron 10 mg q.6 IV per neurology (initiated on 03/25), will start tapering of to 7 days (3) COVID: Code(s): U07.1 - COVID-19 Status: Acute Assessment and Plan: Patient also tested positive for COVID -continue dexamethasone -continue remdesivir -continue droplet, airborne and contact isolation/precautions (4) Tobacco abuse: Code(s): Z72.0 - Tobacco use Status: Acute Assessment and Plan: Current history of tobacco use, patient is intubated and unable to counseled patient on cessation (5) Peripheral vascular disease: Code(s): I73.9 - Peripheral vascular disease, unspecified Status: Acute Assessment and Plan: 12/24/2020 ankle and brachial index was done: Arterial occlusive disease to the bilateral lower limbs with mild to moderately decreased bilateral ABIs and mildly decreased right and mild to moderately decreased left TBIs (6) Hypertension: Code(s): I10 - Essential (primary) hypertension Status: Acute Assessment and Plan: Patient with history of essential hypertension, she has been running in the 180s to 220s -patient is on p.r.n. hydralazine to maintain SBP between 160-180 mmHg. -added home hydralazine and losartan (7) Cardiomyopathy: Code(s): I42.9 - Cardiomyopathy, unspecified Status: Acute Assessment and Plan: Severe cardiomyopathy Echocardiogram done on 03/26/2021: Showed an LV systolic is severely reduced, EF of 15-20%. LV chamber dimension is severely enlarged, severe concentric LV wall thickness. Grade 1 diastolic dysfunction RV systolic function is reduced, moderate a gout attack valve sclerosis moderate pericardial effusion -cardiology following the patient, patient is bradycardic which could be related to elevated intracranial pressure. Will hold metoprolol, losartan per Cardiology. -will continue to monitor systolic blood pressures in use IV hydralazine p.r.n. to maintain SBP between 160-180 mmHg given large MCA stroke (8) Pericardial effusion without cardiac tamponade: Code(s): I31.3 - Pericardial effusion (noninflammatory) Status: Acute Assessment and Plan: Moderate pericardial effusion as seen on echocardiogram as above, no tamponade physiology at this time. Continue to monitor (9) Diabetes: Code(s): E11.9 - Type 2 diabetes mellitus without complications Status: Acute Assessment and Plan: Continue sliding scale insulin and Accu-Cheks Additional Plan 03/26: Discuss with brother, Gerson. Dr. Solano was also present for the meeting. We both updated him on patient's condition, plan of care we did let him know that patient has had a large MCA stroke, and that she will
[2021-03-28 12:10] LABS: Glucose Point of Care 292 mg/dl (65-105)
[2021-03-28 16:41] LABS: Glucose Point of Care 292 mg/dl (65-105)
[2021-03-28] MEDS: REMDESIVIR 100 MG/NS 250 ML 100 MG/250 ML BAG 250 MG IVPB (21:17)
[2021-03-29] VITALS (17 sets, daily range): BP systolic 151–205; BP diastolic 55–86; PULSE 52–92; RESP 13–21; TEMP 35.7–37.1; O2SAT 97–100
[2021-03-29] MEDS: hydrALAZINE HCL 20 MG/ML VIAL 10 MG IV PUSH ×3 (00:04→16:46)
[2021-03-29 01:13] LABS: Glucose Point of Care 222 mg/dl (65-105)
[2021-03-29] MEDS: AMPICILLIN SULB 3 GM/NS 100 ML 3 GM/100 ML VIAL IVPB ×4 (04:00→22:52)
[2021-03-29 05:02] LABS: Hematocrit 47.1 % (37.0-47.0); Hemoglobin 14.9 g/dL (12.0-15.0); Mean Corpuscular HGB Conc 31.6 g/dl (32-36); Mean Corpuscular Hemoglobin 30.7 pg (26-34); Mean Corpuscular Volume 97.1 fl (80-100); Mean Platelet Volume 9.6 fl (7.4-10.4); Platelet Count Result 297 k/mm3 (150-375); Red Blood Count 4.85 M/mm3 (4.2-5.4); Red Cell Distribution Width 14.2 % (11.5-14.5); White Blood Count 13.3 K/mm3 (4.5-10.0)
[2021-03-29 05:13] LABS: INR 1.5
[2021-03-29] MEDS: CENTRAL LINE FLUSH 10 ML IV PUSH ×3 (05:22→22:54)
[2021-03-29 05:28] LABS: Glucose Point of Care 179 mg/dl (65-105)
[2021-03-29 05:30] LABS: Alanine Aminotransferase 19 U/L (4-35); Albumin Level 3.3 g/dL (3.5-5.1); Alkaline Phosphatase 82 U/L (38-126); Anion Gap 6 mmol/L (8-16); Aspartate Amino Transferase 36 U/L (14-36); Bilirubin,Total 0.5 mg/dL (0.2-1.3); Blood Urea Nitrogen 80 mg/dL (7-17); Calcium 9.6 mg/dL (8.4-10.2); Carbon Dioxide 29 mmol/L (22-30); Chloride 113 mmol/L (98-107); Estimated CRCL calculation 30 ml/min; Estimated Glomerular Filt Rate 36; Glucose 192 mg/dL (65-110); Potassium 3.8 mmol/L (3.4-5.0); Sodium 148 mmol/L (137-145)
[2021-03-29 05:51] LABS: pH ABG 7.454 (7.350-7.450)
[2021-03-29 05:52] LABS: Base Excess ABG 0.6 mEq/l (+/-2.0); Total Hemoglobin 15.4 g/dL (12.0-18.0)
[2021-03-29 05:53] LABS: Carboxyhemoglobin 0.1 % THb (0-2.0); Methemoglobin ABG 0.7 %THb (0-1.5); Oxygen Content ABG 20.4 %vol (16.0-22.0)
[2021-03-29 05:54] LABS: Device VENTILATOR; Fractional Inspired Oxygen 25 %; Modified Allen's Test Pass; PO2 FiO2 Ratio Arterial Blood 3.09 %; Reduced Hemoglobin 5.2 %THb (0-5.0); Site Drawn LEFT RADIAL
[2021-03-29 05:55] LABS: Arterial Blood Gas PEEP 5 cmH2O; Arterial Blood Gas Vent Mode ASV
[2021-03-29] MEDS: MINERAL OIL/WHITE PETROLATUM OINTMENT 1 APPLIC EACH EYE ×2 (09:07→22:58)
[2021-03-29] MEDS: METOPROLOL TARTRATE 50 MG TAB PO (09:08)
[2021-03-29] MEDS: hydrALAZINE HCL 50 MG TABLET PO ×2 (09:09→12:50)
[2021-03-29] MEDS: INSULIN GLARGINE (*BKC) 100 UNITS/ML 14 UNITS SUB-Q (09:09)
[2021-03-29] MEDS: ASPIRIN 325 MG TABLET FEED TUBE (10:34)
[2021-03-29] MEDS: LOSARTAN POTASSIUM 50 MG TABLET 100 MG PO (10:34)
--- NOTE | 2021-03-29 12:04 | WPDINTPN ---
Progress Note: A&P Assessment and Plan (1) Acute respiratory failure: Code(s): J96.00 - Acute respiratory failure, unspecified whether with hypoxia or hypercapnia Status: Acute Assessment and Plan: Patient was hypoxic, unresponsive, possible due to acute large MCA stroke. Causing [place] triad, also could be related to COVID-19 pneumonia -patient was intubated overnight. -patient is currently on ASV mode of ventilation peep of 5 and 25% FiO2. Place patient on pressure support ventilation, will evaluate for extubation, patient has a good cough reflex -off all sedation (2) Stroke: Code(s): I63.9 - Cerebral infarction, unspecified Status: Acute Assessment and Plan: Patient presented with altered mental status with weakness on the left upper and lower extremity, patient also has had a facial droop and she had some slurring of speech since Jos[place] according the family that is mention in the medical records. CTA Head and neck on 03/25/2021: Showed Right M1 occlusion likely acute thrombus, subsequent developing large MCA acute infarction. 2. Bilateral carotid bulb 0% stenosis. -patient was outside of the tPA window -appreciate Neurology evaluation and recommendation -patient is on Decadron 10 mg q.6 IV per neurology (initiated on 03/25), will start tapering from 7 days (3) COVID: Code(s): U07.1 - COVID-19 Status: Acute Assessment and Plan: Patient also tested positive for COVID -continue dexamethasone -continue remdesivir -continue droplet, airborne and contact isolation/precautions (4) Tobacco abuse: Code(s): Z72.0 - Tobacco use Status: Acute Assessment and Plan: Current history of tobacco use, patient is intubated and unable to counseled patient on cessation (5) Peripheral vascular disease: Code(s): I73.9 - Peripheral vascular disease, unspecified Status: Acute Assessment and Plan: 12/24/2020 ankle and brachial index was done: Arterial occlusive disease to the bilateral lower limbs with mild to moderately decreased bilateral ABIs and mildly decreased right and mild to moderately decreased left TBIs (6) Hypertension: Code(s): I10 - Essential (primary) hypertension Status: Acute Assessment and Plan: Patient with history of essential hypertension, she has been running in the 180s to 220s -patient is on p.r.n. hydralazine to maintain SBP between 160-180 mmHg. -continue home dose of hydralazine, losartan, metoprolol (7) Cardiomyopathy: Code(s): I42.9 - Cardiomyopathy, unspecified Status: Acute Assessment and Plan: Severe cardiomyopathy Echocardiogram done on 03/26/2021: Showed an LV systolic is severely reduced, EF of 15-20%. LV chamber dimension is severely enlarged, severe concentric LV wall thickness. Grade 1 diastolic dysfunction RV systolic function is reduced, moderate a gout attack valve sclerosis moderate pericardial effusion -cardiology following the patient, patient is bradycardic which could be related to elevated intracranial pressure. Will hold metoprolol, losartan per Cardiology. -will continue to monitor systolic blood pressures in use IV hydralazine p.r.n. to maintain SBP between 160-180 mmHg given large MCA stroke (8) Pericardial effusion without cardiac tamponade: Code(s): I31.3 - Pericardial effusion (noninflammatory) Status: Acute Assessment and Plan: Moderate pericardial effusion as seen on echocardiogram as above, no tamponade physiology at this time. Continue to monitor (9) Diabetes: Code(s): E11.9 - Type 2 diabetes mellitus without complications Status: Acute Assessment and Plan: Continue sliding scale insulin and Accu-Cheks Additional Plan 03/26: Discuss with brother, Gerson. Dr. Solano was also present for the meeting. We both updated him on patient's condition, plan of care we did let him know that patient has had a large MCA stroke, and t
[2021-03-29] MEDS: INSULIN ASPART (*BKC) 100 UNITS/ML SUB-Q ×2 (12:51)
[2021-03-29 13:04] LABS: Glucose Point of Care 204 mg/dl (65-105)
[2021-03-29 13:35] LABS: Alveolar/Arterial O2 Gradient 41.5 mmHg; Base Excess ABG 2.1 mEq/l (+/-2.0); Fractional Inspired Oxygen 25 %; HCO3 ABG 26.1 mEq/l (22.0-26.0); Oxygen Content ABG 20.9 %vol (16.0-22.0); Oxygen Saturation ABG 97.3 % (95.0-100.0); Oxyhemoglobin 95.6 % THb (90.0-100.0); PCO2 ABG 38.7 mmHg (35.0-45.0); PO2 ABG 90.8 mmHg (80.0-100.0); PO2 FiO2 Ratio Arterial Blood 3.63 %; Total Hemoglobin 15.5 g/dL (12.0-18.0); pH ABG 7.446 (7.350-7.450)
[2021-03-29 13:38] LABS: Arterial Blood Gas PEEP 5 cmH2O; Arterial Blood Gas Vent Mode SPONTANEOUS; Device VENTILATOR; Modified Allen's Test Pass; Site Drawn RIGHT RADIAL
[2021-03-29 13:39] LABS: Arterial Blood Gas Pressure Support 8 cmH2O
[2021-03-29 17:33] LABS: Glucose Point of Care 134 mg/dl (65-105)
--- NOTE | 2021-03-29 20:11 | PC.NURSE ---
This patient, Isabel Wick, was received from ICU 3 on 03/29/21 at 1930. Patient/family oriented to unit policies and routines
[2021-03-29] MEDS: REMDESIVIR 100 MG/NS 250 ML 100 MG/250 ML BAG 250 MG IVPB (22:51)
[2021-03-30] VITALS (11 sets, daily range): BP systolic 160–195; BP diastolic 68–89; PULSE 56–74; RESP 16–26; TEMP 35.6–36.6; O2SAT 90–100; BMI 11.0
[2021-03-30 00:33] LABS: Glucose Point of Care 134 mg/dl (65-105)
[2021-03-30] MEDS: AMPICILLIN SULB 3 GM/NS 100 ML 3 GM/100 ML VIAL IVPB ×4 (04:26→21:43)
[2021-03-30 05:43] LABS: Hematocrit 49.1 % (37.0-47.0); Hemoglobin 15.1 g/dL (12.0-15.0); Mean Corpuscular HGB Conc 30.8 g/dl (32-36); Mean Corpuscular Hemoglobin 30.8 pg (26-34); Mean Platelet Volume 9.5 fl (7.4-10.4); Platelet Count Result 239 k/mm3 (150-375); Red Blood Count 4.91 M/mm3 (4.2-5.4); Red Cell Distribution Width 14.3 % (11.5-14.5); White Blood Count 13.1 K/mm3 (4.5-10.0)
[2021-03-30 05:54] LABS: INR 1.5; Prothrombin Time 18.1 Seconds (11.1-14.7)
[2021-03-30 05:56] LABS: Alanine Aminotransferase 20 U/L (4-35); Albumin Level 3.1 g/dL (3.5-5.1); Alkaline Phosphatase 66 U/L (38-126); Anion Gap 8 mmol/L (8-16); Aspartate Amino Transferase 34 U/L (14-36); Bilirubin,Total 0.6 mg/dL (0.2-1.3); Blood Urea Nitrogen 73 mg/dL (7-17); Calcium 9.6 mg/dL (8.4-10.2); Carbon Dioxide 28 mmol/L (22-30); Chloride 117 mmol/L (98-107); Estimated CRCL calculation 38 ml/min; Estimated Glomerular Filt Rate 39; Glucose 117 mg/dL (65-110); Potassium 3.6 mmol/L (3.4-5.0); Sodium 153 mmol/L (137-145)
[2021-03-30] MEDS: CENTRAL LINE FLUSH 10 ML IV PUSH ×3 (06:10→21:43)
[2021-03-30] MEDS: INSULIN GLARGINE (*BKC) 100 UNITS/ML 14 UNITS SUB-Q (08:42)
[2021-03-30] MEDS: MINERAL OIL/WHITE PETROLATUM OINTMENT 1 APPLIC EACH EYE (08:43)
[2021-03-30] MEDS: methylPREDNISolone SOD SUCC 40 MG VIAL IV PUSH (08:43)
--- NOTE | 2021-03-30 09:26 | PCSTNOTE ---
Patient has orders for Bedside Swallow Evaluation. However she is intubated. These orders are discharged and may be re-ordered when patient condition improves.
--- NOTE | 2021-03-30 10:23 | PM.PNCARD ---
Progress Note: A&P Additional Plan 66-year-old lady unfortunately with a severe dilated cardiomyopathy likely related to chronic hypertension. She is on appropriate medical therapy for this. We unfortunately are seeing the patient after she has had a large likely very debilitating middle cerebral artery stroke also with coronavirus. No alterations in her medical regimen to recommend today. She is not in any state of decompensated heart failure despite being hypertensive. Prognosis is obviously very limited given her extensive CVA. Cali Dooley MD [facility] Subjective Date/time seen: Date of service: 03/30/21 10:23 Interval history: Follow-up visit in this 66-year-old woman with: Significant cardiomyopathy with severe left ventricular systolic dysfunction. Likely a chronic process. Patient has longstanding hypertension and was admitted to the hospital with a large middle cerebral artery stroke and also Coronavirus. Patient is out of the ICU room 232 today is alert and responsive. Asking for something to drink and reporting being cold no other specific complaints Exam Const: General: comfortable and no acute distress HENMT: Mouth: Yes moist mucous membranes Eyes: Sclera: sclerae normal Neck: Neck: supple Other: Carotid pulses are intact no bruits Resp: Effort & Inspection: normal respiratory effort Auscultation: clear to auscultation bilaterally Cardio: Rate: regular rate Rhythm: regular rhythm Other: PMI is laterally displaced no audible murmur GI: GI Palp: Yes Soft to palpation Auscultation: normal bowel sounds Skin: General skin exam: normal color Neuro: Cognition (Neuro): normal cognition Extrem: General: normal to inspection Objective Data Vital Signs Vital Signs: Vital Signs - 24 hr 03/29/21 12:00 03/29/21 12:10 03/29/21 13:50 Temperature 36.1 C L Pulse Rate 52 L 53 L Respiratory Rate 21 H Blood Pressure 170/70 H Pulse Oximetry 98 97 100 03/29/21 14:00 03/29/21 16:00 03/29/21 20:00 Temperature 35.7 C L Pulse Rate 55 L 55 L 56 L Respiratory Rate 17 19 Blood Pressure 178/71 H 185/70 H Pulse Oximetry 100 100 100 03/29/21 20:30 03/29/21 22:00 03/30/21 00:00 Temperature 36.2 C L Pulse Rate 58 L 60 58 L Respiratory Rate 18 Blood Pressure 151/86 H Pulse Oximetry 100 96 03/30/21 00:15 03/30/21 02:00 03/30/21 04:00 Temperature 36.6 C 36.6 C Pulse Rate 60 56 L 62 Respiratory Rate 18 19 Blood Pressure 160/78 H 167/75 H Pulse Oximetry 96 98 03/30/21 06:00 Temperature Pulse Rate 66 Respiratory Rate Blood Pressure Pulse Oximetry Intake/Output Intake/Output: Intake & Output 03/27/21 03/28/21 03/29/21 03/30/21 23:59 23:59 23:59 23:59 Intake Total 2031 1966 683 100 Output Total 467 664 0758 500 Balance 1406 7854 -649 -268 Meds/Results Medications: Active Medications Generic Name Dose Route Start Last Admin Trade Name Freq PRN Reason Stop Dose Admin Aspirin 325 mg 03/29/21 08:00 03/29/21 10:34 Aspirin 325 Mg Tablet FEED TUBE 325 mg DAILY@0800 MARIA D Administration Dextrose 12.5 gm 03/25/21 01:55 Dextrose 50% 25 Gm/50 Ml Syringe IV PUSH PRN PRN Hypoglycemia Protocol Glucagon 1 mg 03/25/21 01:55 Glucagon For Inj 1 Mg Vial IM PRN PRN Hypoglycemia Protocol Glucose 15 gm 03/25/21 01:55 Glucose Oral Gel 15 Gm Of Glucse In 37.5 Gm Tube PO PRN PRN Hypoglycemia Protocol Hydralazine HCl 10 mg 03/26/21 07:41 03/29/21 16:46 Hydralazine Hcl 20 Mg/Ml Vial IV PUSH 10 mg Q4H PRN Administration FOR SBP > 180 mmHg Hydralazine HCl 50 mg 03/28/21 09:00 03/30/21 04:10 Hydralazine Hcl 50 Mg Tablet PO Not Given QID MARIA D Dextrose 1,000 mls @ 100 mls/hr 03/25/21 01:55 Dextrose 5% 1,000 Ml IVPB PRN PRN Hypoglycemia Protocol Ampicillin Sodium/Sulbactam Sodium 3 gm in 100 mls @ 200 mls/hr 03/26/21 04:00 03/30/21 05:09 Unasyn
[2021-03-30 12:20] LABS: Glucose Point of Care 136 mg/dl (65-105)
[2021-03-30] MEDS: hydrALAZINE HCL 20 MG/ML VIAL 10 MG IV PUSH (12:24)
--- NOTE | 2021-03-30 15:53 | PM.IMPN ---
Progress Note: A&P Assessment and Plan (1) Diabetes: Code(s): E11.9 - Type 2 diabetes mellitus without complications Status: Acute (2) Stroke: Code(s): I63.9 - Cerebral infarction, unspecified Status: Acute (3) Acute respiratory failure: Code(s): J96.00 - Acute respiratory failure, unspecified whether with hypoxia or hypercapnia Status: Acute (4) COVID: Code(s): U07.1 - COVID-19 Status: Acute (5) Hypertension associated with diabetes: Code(s): E11.59 - Type 2 diabetes mellitus with other circulatory complications; I15.2 - Hypertension secondary to endocrine disorders Status: Acute (6) Tobacco abuse: Code(s): Z72.0 - Tobacco use Status: Acute (7) Acute respiratory alkalosis: Code(s): E87.3 - Alkalosis Status: Acute Additional Plan # right MCA stroke -complete left-sided paralysis, significant morbidity -patient will need extensive therapy long-term -patient needs have speech therapy evaluation, NPO for now, likely will need PEG tube -will need to look for disposition to long-term facility -PT and OT to evaluate and treat patient, will see if she could participate with 3 hours therapy for rehab -pAnthonyrarlet Gordon for nausea -she keeps removing the NG tube, will hold off for now. I called and discussed with brother the next of kin. We will need to discuss goals of care tomorrow, PEG tube discussion -for now will have D5 half-normal saline at 75 cc/hour, holding off on TPN as well, patient has PICC line # COVID-19 # acute hypoxic respiratory failure -status post remdesivir, Decadron switch to Solu-Medrol for bradycardia, continue 40 mg IV daily -weaning oxygen as tolerated down to 2 L, extubated 03/29/2021 -antibiotics Unasyn started on 03/26/2021, will continue for 5 days, pneumonia? # essential hypertension # cardiomyopathy -continue metoprolol 50 mg q.12 hours, Cozaar 100 mg daily, hydralazine 50 mg q.i.d., increasing to 100 mg as she is persistently hypertensive # insulin-dependent diabetic -continue glargine 14 units daily, sliding scale insulin, hypoglycemia protocol Diet: NPO, awaiting speech therapy evaluation DVT prophylaxis: Lovenox Code status: Do not resuscitate Disposition: Pending clinical course, likely long-term facility, likely will need PEG tube Social: Brother [phone] Subjective Date/time seen: 03/30/21 15:53 Patient seen and examined. Patient was extubated yesterday, but the BiPAP overnight watch than IMU. Today she is breathing comfortably on 2 L of oxygen. She has significant left-sided facial droop, left hemiparesis which is pretty complete in upper and lower extremity. She will likely fail swallow study today, discussed with RN to place NG tube. Will continue giving medications through NG tube, will likely need PEG tube with this profound stroke. Will wait for official swallow study evaluation. Patient's stroke is been more than 3 days, no longer need permissive hypertension. I am unable to find the speech therapist to discuss swallow function and further management. Patient states she is cold otherwise denies pain, fever, chills, nausea, vomiting, diarrhea. Review of Systems Review of Systems: All systems reviewed & are unremarkable except as noted in HPI and below Exam Narrative: - GENERAL: ill appear woman. profound weakness - EYES: EOMI. Anicteric. right gaze preference but is able to look to midline and slightly left on command - HENT: Moist mucous membranes. left facial droop - LUNGS: Clear to auscultation bilaterally, no wheezing, rhonchi, or rales. - CARDIOVASCULAR: Regular rate and rhythm. - ABDOMEN: Soft, non-tender and non-distended. - EXTREMITIES: No edema. Peripheral pulses 2+. Non-tender. - NEUROLOGIC:CN II-XII grossly intact. Left upper and lower extremity complete paralysis, right side is intact - PSYCHIATRIC: Awake, Alert and oriented x 3. Appropriate mood and affect. - SKI
[2021-03-30 17:06] LABS: Glucose Point of Care 149 mg/dl (65-105)
[2021-03-30] MEDS: DEXTROSE 5%/0.45% SOD CHL 1,000 ML 75 ML IV CONT (17:28)
[2021-03-31] VITALS (13 sets, daily range): BP systolic 178–208; BP diastolic 67–81; PULSE 57–72; RESP 20–24; TEMP 35.9–37.2; O2SAT 92–97
[2021-03-31 00:26] LABS: Glucose Point of Care 149 mg/dl (65-105)
[2021-03-31] MEDS: hydrALAZINE HCL 20 MG/ML VIAL 10 MG IV PUSH ×2 (00:26→06:28)
[2021-03-31] MEDS: AMPICILLIN SULB 3 GM/NS 100 ML 3 GM/100 ML VIAL IVPB ×2 (03:42→10:20)
[2021-03-31] MEDS: METOPROLOL TARTRATE INJ 5 MG/5 ML VIAL IV PUSH ×4 (03:43→23:30)
[2021-03-31 04:00] LABS: Hematocrit 47.2 % (37.0-47.0); Hemoglobin 14.7 g/dL (12.0-15.0); Mean Corpuscular HGB Conc 31.1 g/dl (32-36); Mean Corpuscular Hemoglobin 31.5 pg (26-34); Mean Corpuscular Volume 101.3 fl (80-100); Mean Platelet Volume 9.9 fl (7.4-10.4); Platelet Count Result 222 k/mm3 (150-375); Red Blood Count 4.66 M/mm3 (4.2-5.4); Red Cell Distribution Width 14.5 % (11.5-14.5); White Blood Count 10.2 K/mm3 (4.5-10.0)
[2021-03-31 04:16] LABS: Alanine Aminotransferase 24 U/L (4-35); Albumin Level 2.9 g/dL (3.5-5.1); Alkaline Phosphatase 59 U/L (38-126); Anion Gap 4 mmol/L (8-16); Aspartate Amino Transferase 36 U/L (14-36); Bilirubin,Total 0.7 mg/dL (0.2-1.3); Blood Urea Nitrogen 69 mg/dL (7-17); Calcium 9.4 mg/dL (8.4-10.2); Carbon Dioxide 29 mmol/L (22-30); Chloride 120 mmol/L (98-107); Estimated CRCL calculation 38 ml/min; Estimated Glomerular Filt Rate 39; Glucose 147 mg/dL (65-110); Potassium 3.7 mmol/L (3.4-5.0); Sodium 153 mmol/L (137-145)
[2021-03-31] MEDS: CENTRAL LINE FLUSH 10 ML IV PUSH ×3 (04:49→21:01)
[2021-03-31] MEDS: DEXTROSE 5%/0.45% SOD CHL 1,000 ML 75 ML IV CONT ×2 (06:24→20:56)
--- NOTE | 2021-03-31 09:26 | PCSTNOTE ---
Please refer to the Bedside Swallow Evaluation in the EMR. Please note, silent aspiration cannot be ruled out at bedside.
[2021-03-31] MEDS: INSULIN GLARGINE (*BKC) 100 UNITS/ML 14 UNITS SUB-Q (10:15)
[2021-03-31] MEDS: ENALAPRILAT 1.25 MG/ML VIAL IV PUSH ×4 (10:16→23:25)
[2021-03-31] MEDS: methylPREDNISolone SOD SUCC 40 MG VIAL IV PUSH (10:17)
[2021-03-31 10:25] LABS: Glucose Point of Care 190 mg/dl (65-105)
--- NOTE | 2021-03-31 10:33 | PM.IMPN ---
Progress Note: A&P Assessment and Plan (1) Diabetes: Code(s): E11.9 - Type 2 diabetes mellitus without complications Status: Acute (2) Stroke: Code(s): I63.9 - Cerebral infarction, unspecified Status: Acute (3) Acute respiratory failure: Code(s): J96.00 - Acute respiratory failure, unspecified whether with hypoxia or hypercapnia Status: Acute (4) COVID: Code(s): U07.1 - COVID-19 Status: Acute (5) Hypertension associated with diabetes: Code(s): E11.59 - Type 2 diabetes mellitus with other circulatory complications; I15.2 - Hypertension secondary to endocrine disorders Status: Acute Additional Plan # right MCA stroke -complete left-sided paralysis, significant morbidity -patient will need extensive therapy long-term -failed swallow study, keeping NPO, consulted GI for PEG tube -will need to look for disposition to long-term facility -PT and OT to evaluate and treat patient -p.r.n. Zofran for nausea -for now will have D5 half-normal saline at 75 cc/hour until PICC line can be placed -etiology of stroke is unclear, continue on telemetry # COVID-19 # acute hypoxic respiratory failure -status post remdesivir, Decadron switch to Solu-Medrol for bradycardia, continue 40 mg IV daily -weaning oxygen as tolerated down to 2 L, extubated 03/29/2021 -will see if we can wean off oxygen completely # superimposed bacterial pneumonia -patient was put on Unasyn 5 days, completing today -leukocytosis down to 10.2 # essential hypertension # hypertensive cardiomyopathy -continue metoprolol 50 mg q.12 hours, Cozaar 100 mg daily, hydralazine 50 mg q.i.d., increasing to 100 mg as she is persistently hypertensive -patient NPO because of her stroke and keeps on removing NG tube. Will manage with IV medications until PEG tube placed -blood pressure control: Scheduled metoprolol IV, adding Vasotec IV, p.r.n. hydralazine IV # insulin-dependent diabetic -continue glargine 14 units daily, sliding scale insulin, hypoglycemia protocol Diet: NPO, needs PEG DVT prophylaxis: Lovenox held for PEG tube placement Code status: Do not resuscitate Disposition: long-term facility as opposed to rehab, needs PEG tube and weaning oxygen Social: Brother [phone] Subjective Date/time seen: 03/31/21 10:33 Patient seen examined. She is asking about drinking water however she failed her swallow study this morning. Consulting GI for PEG tube which patient was agreeable to. Which is her looking for disposition at detention with PEG tube. Today will be 5 days of antibiotics Unasyn, will stop today. Patient is on 2 L of oxygen which we should be able to wean today as she is satting 96%. Yesterday her brother next of kin was informed and updated. Patient's blood pressures been significant elevated, patient has significant hypertension causing cardiomyopathy. As she is NPO we are managing with IV medications. Scheduling IV vasotec as well as the IV metoprolol, p.r.n. hydralazine. Review of Systems Review of Systems: She is asking for water, no other complaints Limited ROS due to medical condition All systems reviewed & are unremarkable except as noted in HPI and below Exam Narrative: - GENERAL: ill appear woman. profound weakness - EYES: EOMI. Anicteric. right gaze preference - HENT: Moist mucous membranes. left facial droop - LUNGS: Clear to auscultation bilaterally, no wheezing, rhonchi, or rales. Nonlabored respirations on 2 L oxygen by nasal cannula. - CARDIOVASCULAR: Regular rate and rhythm. - ABDOMEN: Soft, non-tender and non-distended. - EXTREMITIES: No edema. Peripheral pulses 2+. Non-tender. - NEUROLOGIC:CN II-XII grossly intact. Left upper and lower extremity complete paralysis, right side is intact - PSYCHIATRIC: Awake, Alert, unable to assess orientation due to medical condition. Appropriate mood and affect. - SKIN: No rashes or lesions. Warm. Objective Data Vital Signs Vit
[2021-03-31] MEDS: INSULIN ASPART (*BKC) 100 UNITS/ML SUB-Q (12:31)
[2021-03-31 12:53] LABS: Glucose Point of Care 206 mg/dl (65-105)
--- NOTE | 2021-03-31 15:51 | WPDGICN ---
Assessment and Plan Assessment and plan (1) Acute stroke due to ischemia: Code(s): I63.9 - Cerebral infarction, unspecified Status: Acute Assessment and Plan: probably complication from COVID, had large thrombus and could not received TPA now with neurological sequela, she failed speech evaluation plan to place PEG on Wednesday (2) Aphasia: Code(s): R47.01 - Aphasia Status: Acute Assessment and Plan: from stroke, will need half-way feeding with peg (3) Stroke: Code(s): I63.9 - Cerebral infarction, unspecified Status: Acute (4) COVID: Code(s): U07.1 - COVID-19 Status: Acute Assessment and Plan: treated, still on isolation (5) Acute respiratory failure: Code(s): J96.00 - Acute respiratory failure, unspecified whether with hypoxia or hypercapnia Status: Acute Assessment and Plan: resolved (6) Claudication in peripheral vascular disease: Code(s): I73.9 - Peripheral vascular disease, unspecified Status: Acute (7) Systolic CHF, acute on chronic: Code(s): I50.23 - Acute on chronic systolic (congestive) heart failure Status: Acute Assessment and Plan: noted severe cardiomyopathy, cardiology on board (8) Altered mental status: Code(s): R41.82 - Altered mental status, unspecified Status: Acute GI Consult Note Consult date/time: 03/31/21 15:51 Reason for consult: aphasia after large stroke, COVID HPI: Isabel Wick is a 66 year old female with past medical history significant for type 2 diabetes mellitus, congestive heart failure, systolic heart failure, peripheral vascular disease, claudication, gastroesophageal reflux disease, hypertension, dyslipidemia admitted 03/23 with altered mental status and respiratory failure, she was found to have COVID and required briefly mechanical intubated and also found to have occlusion likely acute thrombus, subsequent developing large MCA acute infarction (CT scan reviewed), she now has aphasia and left sided hemiparesis with severe cardiomyopathy (low EF). She now is in the floor and failed bedside speech evaluation. I am called to proceed with peg placement. Review of Systems Review of Systems: ROS unobtainable: Yes unobtainable due to mental status PMFSH Past Medical History Medical History (Updated 03/31/21 @ 15:57 by Froilan Espinoza MD) Aphasia Crying Diabetes Frequent urination High blood pressure Hot flashes Hyperlipidemia Leg pain Memory loss Swollen feet Weakness Surgical History Surgical History History of back surgery Family History Family History Mother Hypertension Sibling Alcoholism Heart problem Social History Social History Smoking packs per day: 0.75 Smoking cigarettes per day: 15.0 Years smoked: 40 Smoking pack-years: 30.00 Smoking status: Unknown if ever smoked Tobacco type: cigarettes Second hand tobacco smoke exposure: No Alcohol intake: unknown Substance use: unknown Substance use type: does not use Spiritual care concerns: No Meds Home Medications and Allergies Home Medications Medication Instructions Recorded Confirmed Type gabapentin 300 mg capsule 300 mg PO DAILY #90 cap 01/30/21 03/25/21 Rx rosuvastatin 20 mg tablet 20 mg PO DAILY #30 tablet 01/30/21 03/25/21 Rx sitagliptin 50 mg-metformin 500 mg 1 tablet PO BID #90 tablet 01/30/21 03/25/21 Rx tablet spironolactone 25 mg tablet 50 mg PO DAILY tablet 02/18/21 03/25/21 History allopurinol 100 mg tablet 100 mg PO DAILY #30 tablet 03/24/21 03/25/21 Rx glimepiride 4 mg tablet 4 mg PO QAM #30 tablet 03/24/21 03/25/21 Rx losartan 100 mg tablet 100 mg PO DAILY #30 tablet 03/24/21 03/25/21 Rx bumetanide 0.5 mg PO BID 03/25/21 03/25/21 History escitalopram oxalate [Lexapro
[2021-03-31 17:27] LABS: Glucose Point of Care 181 mg/dl (65-105)
--- NOTE | 2021-03-31 19:16 | PC.NURSE ---
This patient, Isabel Wick, was transferred to [ [id number]] on 03/31/21 at 1916. Personal belongings sent with patient. Report given to [MARIANNE Maza @ 1910 ]. Appropriate documentation sent with patient.
[2021-04-01] VITALS (7 sets, daily range): BP systolic 162–211; BP diastolic 66–99; PULSE 55–69; RESP 20–24; TEMP 36.4–37.2; O2SAT 90–99; BMI 27.3
[2021-04-01 03:54] LABS: Glucose Point of Care 120 mg/dl (65-105)
[2021-04-01 05:32] LABS: Glucose Point of Care 121 mg/dl (65-105)
[2021-04-01 05:51] LABS: Hematocrit 45.9 % (37.0-47.0); Hemoglobin 13.9 g/dL (12.0-15.0); Mean Corpuscular HGB Conc 30.3 g/dl (32-36); Mean Corpuscular Hemoglobin 31.2 pg (26-34); Mean Corpuscular Volume 102.9 fl (80-100); Platelet Count Result 188 k/mm3 (150-375); Red Blood Count 4.46 M/mm3 (4.2-5.4); Red Cell Distribution Width 14.3 % (11.5-14.5); White Blood Count 9.1 K/mm3 (4.5-10.0)
[2021-04-01 06:01] LABS: Anion Gap 3 mmol/L (8-16); Blood Urea Nitrogen 60 mg/dL (7-17); Calcium 9.4 mg/dL (8.4-10.2); Carbon Dioxide 30 mmol/L (22-30); Chloride 122 mmol/L (98-107); Estimated CRCL calculation 34 ml/min; Estimated Glomerular Filt Rate 42; Glucose 122 mg/dL (65-110); Magnesium 2.4 mg/dL (1.6-2.3); Potassium 3.8 mmol/L (3.4-5.0); Sodium 155 mmol/L (137-145)
[2021-04-01] MEDS: ENALAPRILAT 1.25 MG/ML VIAL IV PUSH ×3 (07:11→23:00)
[2021-04-01] MEDS: CENTRAL LINE FLUSH 10 ML IV PUSH ×3 (07:11→22:50)
[2021-04-01] MEDS: cloNIDine 0.3 MG/24 HR PATCH 1 PATCH TRANSDERM (08:38)
[2021-04-01] MEDS: methylPREDNISolone SOD SUCC 40 MG VIAL IV PUSH (08:40)
[2021-04-01] MEDS: INSULIN GLARGINE (*BKC) 100 UNITS/ML 14 UNITS SUB-Q (08:41)
[2021-04-01] MEDS: hydrALAZINE HCL 20 MG/ML VIAL IV PUSH (10:08)
[2021-04-01] MEDS: DEXTROSE 5%/0.45% SOD CHL 1,000 ML 75 ML IV CONT ×2 (10:11→22:49)
--- NOTE | 2021-04-01 11:21 | PM.IMPN ---
Progress Note: A&P Assessment and Plan (1) Aphasia: Code(s): R47.01 - Aphasia Status: Acute (2) Diabetes: Code(s): E11.9 - Type 2 diabetes mellitus without complications Status: Acute (3) Stroke: Code(s): I63.9 - Cerebral infarction, unspecified Status: Acute (4) Acute respiratory failure: Code(s): J96.00 - Acute respiratory failure, unspecified whether with hypoxia or hypercapnia Status: Acute (5) Hypertension associated with diabetes: Code(s): E11.59 - Type 2 diabetes mellitus with other circulatory complications; I15.2 - Hypertension secondary to endocrine disorders Status: Acute (6) Pneumonia due to COVID-19 virus: Code(s): U07.1 - COVID-19; J12.82 - Pneumonia due to coronavirus disease 2018 Status: Acute Additional Plan # right MCA stroke -complete left-sided paralysis, significant morbidity -patient will need extensive therapy long-term -failed swallow study, keeping NPO, PEG tomorrow -will need to look for disposition to half-way facility -PT and OT to evaluate and treat patient -p.r.n. Zofran for nausea -for now will have D5 half-normal saline at 75 cc/hour until PEG tube -etiology of stroke is unclear, may be cardiac in origin, with COVID that likely caused increased risk of clotting # essential hypertension # hypertensive cardiomyopathy -PO regimen metoprolol 50 mg q.12 hours, Cozaar 100 mg daily, hydralazine 50 mg q.i.d., increasing to 100 mg as she is persistently hypertensive -patient NPO because of her stroke and keeps on removing NG tube. Will manage with IV medications until PEG tube placed -blood pressure control: Stopping scheduled metoprolol for heart rate 60, increasing p.r.n. hydralazine to 20 mg q.4 hours p.r.n., continue base attack IV q.6 hours, adding clonidine patch 0.3 milligrams dose # COVID-19 # acute hypoxic respiratory failure -status post remdesivir, Decadron switch to Solu-Medrol for bradycardia, continue 40 mg IV daily -weaning oxygen as tolerated down to 2 L, extubated 03/29/2021 # laceration of tongue -patient had bit her tongue, bleeding in mouth, blood appears fresh, no blood thinners given -d/w nurse for oral care, peridex wash -will continue supportive care, bleeding appears to have stopped as all the blood was coagulating as opposed to fresh bright red blood # superimposed bacterial pneumonia -patient was put on Unasyn 5 days, completed 03/31/2021 -leukocytosis down to 10.2 # insulin-dependent diabetic -continue glargine 14 units daily, sliding scale insulin, hypoglycemia protocol -blood sugars appear to be stable 120-200 Diet: NPO, PEG tomorrow DVT prophylaxis: Blood thinners held for PEG tube placement tomorrow, also bleeding in mouth as she bit her tongue Code status: Do not resuscitate Disposition: half-way facility, needs PEG tube and weaning oxygen Social: Brother [phone] Subjective Date/time seen: 04/01/21 11:21 Patient seen and examined. She bit her tongue today with blood in in her mouth, will order oral care. Not bright red, bleeding may have stopped. She is not on any blood thinners, patient to have PEG tube placed tomorrow by Dr. Laura. She continues work with speech therapy. She is on 2 L oxygen and we are looking for disposition for half-way facility. Patient denies fever, chills, lightheadedness, dizziness, chest pain, abdominal pain. Nurse notes patient's blood pressure is significantly elevated. Will make some changes, adding clonidine, keeping days attack, increasing hydralazine dose, stopping metoprolol for bradycardia. She still NPO for tomorrow and dysphagia. Review of Systems Review of Systems: All systems reviewed & are unremarkable except as noted in HPI and below Exam Narrative: - GENERAL: ill appear woman. profound weakness - EYES: EOMI. Anicteric. right gaze preference - HENT: Moist mucous membranes. left facial droop. Dark coagulating blood in
--- NOTE | 2021-04-01 11:29 | PCOTNOTE ---
Attempted to see patient this am, however patient sleeping upon entering and unable to arouse at this time.
[2021-04-01 11:55] LABS: Glucose Point of Care 160 mg/dl (65-105)
--- NOTE | 2021-04-01 12:28 | PM.PNCARD ---
Progress Note: A&P Assessment and Plan (1) Acute stroke due to ischemia: Code(s): I63.9 - Cerebral infarction, unspecified <CLARA Hurtado - Last Filed: 04/01/21 13:29> Status: Acute <CLARA Hurtado - Last Filed: 04/01/21 13:29> Assessment and Plan: Will defer to Neurology and hospitalist services. <CLARA Hurtado - Last Filed: 04/01/21 13:29> (2) Cardiomyopathy: Code(s): I42.9 - Cardiomyopathy, unspecified <CLARA Hurtado - Last Filed: 04/01/21 13:29> Status: Acute <CLARA Hurtado - Last Filed: 04/01/21 13:29> Assessment and Plan: Severe cardiomyopathy. If meaningful recovery, she will be need further workup for her cardiomyopathy. In the meantime, we will manage her medically. Will allow a certain degree of permissive hypertension. Not exhibiting any clinical signs of decompensated heart failure at this time. Continue metoprolol Continue losartan Continue hydralazine <CLARA Hurtado - Last Filed: 04/01/21 13:29> (3) Hypertension associated with diabetes: Code(s): E11.59 - Type 2 diabetes mellitus with other circulatory complications; I15.2 - Hypertension secondary to endocrine disorders <CLARA Hurtado - Last Filed: 04/01/21 13:29> Status: Acute <CLARA Hurtado - Last Filed: 04/01/21 13:29> Assessment and Plan: As above <CLARA Hurtado - Last Filed: 04/01/21 13:29> (4) Pericardial effusion without cardiac tamponade: Code(s): I31.3 - Pericardial effusion (noninflammatory) <CLARA Hurtado - Last Filed: 04/01/21 13:29> Status: Acute <CLARA Hurtado - Last Filed: 04/01/21 13:29> Assessment and Plan: No tamponade <CLARA Hurtado - Last Filed: 04/01/21 13:29> (5) Elevated troponin: Code(s): R77.8 - Other specified abnormalities of plasma proteins <CLARA Hurtado - Last Filed: 04/01/21 13:29> Status: Acute <CLARA Hurtado - Last Filed: 04/01/21 13:29> Assessment and Plan: Insignificant and not related to acute plaque rupture from coronary disease. Much more likely related to either ischemic stroke, CHF, high blood pressure, renal failure. <CLARA Hurtado - Last Filed: 04/01/21 13:29> (6) COVID: Code(s): U07.1 - COVID-19 <CLARA Hurtado - Last Filed: 04/01/21 13:29> Status: Acute <CLARA Hurtado - Last Filed: 04/01/21 13:29> Assessment and Plan: She has been weaned off mechanical ventilation at this point. Stable on O2 per nasal cannula. <CLARA Hurtado - Last Filed: 04/01/21 13:29> Additional Plan Attending addendum: I agree with the above documentation and plan of care as outlined. <Jacoby Madison MD - Last Filed: 04/01/21 16:28> Subjective Date/time seen: 04/01/21 12:28 <CLARA Hurtado - Last Filed: 04/01/21 13:29> Interval history: Cardiology follow up for cardiomyopathy Date of service 04/01/2021: Remains debilitated due to her recent CVA. Left sided hemiplegia, aphasia. Recently failed swallow eval and will require PEG tube placement. <CLARA Hurtado - Last Filed: 04/01/21 13:29> Review of Systems Review of Systems: ROS unobtainable: Yes unobtainable due to medical condition <CLARA Hurtado - Last Filed: 04/01/21 13:29> Exam Const: General: comfortable and no acute distress <CLARA Hurtado - Last Filed: 04/01/21 13:29> HENMT: Mouth: Yes moist mucous membranes <CLARA Hurtado - Last Filed: 04/01/21 13:29> Eyes: Sclera: sclerae normal <CLARA Hurtado - Last Filed: 04/01/21 13:29> Neck: Neck: supple <CLARA Hurtado - Last Filed: 04/01/21 13:29> Resp: Effort & Inspection: normal respiratory effort <CLARA Hurtado Last Filed: 04/01/21 13:29> Auscultation: clear to auscultatio
--- NOTE | 2021-04-01 12:33 | PCNFU ---
Nutrition Follow-Up Complete: Inadequate oral intake related to mechanical ventilation as evidenced by NPO New statement: Swallowing Difficulties as related to CVA as evidenced by tube feeding placement. goal: Meet nutritional needs Will continue current goal. Pt current nutrition is NPO. Nutrition recommendation: Glucerna 1.2 at 20 ml/hr advance by 10 ml q 4 hours to goal rate of 65 ml/hr. Last recorded weight is 84 kg-stable Bowel Motility:+BM reported 03/31 Labs Reviewed: Mg 2.4,Cr 1.5,Glu 122, GFR 42,Na 155, BUN 60 Meds Noted:Dextrose/Sodium Chloride, Lantus, Solu-Medrol, Apresoline, Vasotec Skin: WNL Additional Notes: Patient failed bedside swallow eval. Plans for PEG placement tomorrow 04/02. Monitoring: every Wednesday and Wednesday.
--- NOTE | 2021-04-01 12:47 | WPDGIPROGNO ---
Progress Note: A&P Assessment and Plan (1) Acute stroke due to ischemia: Code(s): I63.9 - Cerebral infarction, unspecified Status: Acute Assessment and Plan: complicated with aphasia and paralysis left side, did not pass speech evaluation PEG placement tomorrow for nursing home feeding (2) Aphasia: Code(s): R47.01 - Aphasia Status: Acute (3) Pneumonia due to COVID-19 virus: Code(s): U07.1 - COVID-19; J12.82 - Pneumonia due to coronavirus disease 2018 Status: Acute Assessment and Plan: on admission, then hospital course complicated with CVA from thrombosis (4) Hypertension associated with diabetes: Code(s): E11.59 - Type 2 diabetes mellitus with other circulatory complications; I15.2 - Hypertension secondary to endocrine disorders Status: Acute (5) Cardiomyopathy: Code(s): I42.9 - Cardiomyopathy, unspecified Status: Acute Assessment and Plan: found to have severe systolic dysfunction cardiology on board Subjective Date/time seen: 04/01/21 12:47 Interval history: no changes Review of Systems Review of Systems: All systems reviewed & are unremarkable except as noted in HPI and below Exam Const: General: no acute distress Other: aphasia HENMT: General nose exam: Normal nares present Eyes: Sclera: sclerae normal Neck: Neck: supple Resp: Auscultation: rales and no wheezes Cardio: Rate: regular rate GI: GI Palp: Yes Soft to palpation, No Tenderness to palpation present (GI) and No Guarding due to palpation present (GI) Auscultation: normal bowel sounds Skin: General skin exam: normal color Neuro: Other: aphasia, can not move left side- unchanged Extrem: General: no edema Psych: Other: difficult to assess due to aphasia Objective Data Vital Signs Vital Signs: Vital Signs - 24 hr 03/31/21 16:00 03/31/21 17:46 03/31/21 20:00 Temperature 98.9 F 98.1 F Pulse Rate 64 65 60 Respiratory Rate 24 H 21 H Blood Pressure 192/71 H 178/69 H Pulse Oximetry 95 96 03/31/21 23:30 04/01/21 00:00 04/01/21 04:00 Temperature 97.8 F 97.5 F L Pulse Rate 57 L 56 L 60 Respiratory Rate 22 H 22 H Blood Pressure 181/66 H 209/85 H Pulse Oximetry 99 93 04/01/21 08:00 04/01/21 08:32 Temperature 97.7 F Pulse Rate 58 L 60 Respiratory Rate 24 H Blood Pressure 211/78 H Pulse Oximetry 96 Intake/Output Intake/Output: Intake & Output 03/29/21 03/30/21 03/31/21 04/01/21 23:59 23:59 23:59 23:59 Intake Total 858 844 9670 1000 Output Total 1025 1000 1550 600 Balance -342 -600 650 400 Meds/Results Medications: Active Medications Generic Name Dose Route Start Last Admin Trade Name Freq PRN Reason Stop Dose Admin Aspirin 325 mg 03/29/21 08:00 04/01/21 07:12 Aspirin 325 Mg Tablet FEED TUBE Not Given DAILY@0800 MARIA D Chlorhexidine Gluconate 15 ml 04/01/21 17:00 Chlorhexidine Gluconate 0.12% Oral Rinse 473 Ml Btl (*Bkc) SWISH/SPIT BID MARIA D Clonidine HCl 1 patch 04/01/21 09:00 04/01/21 08:38 Clonidine 0.3 Mg/24 Hr Patch TRANSDERM 1 patch WEEKLY MARIA D Administration Dextrose 12.5 gm 03/25/21 01:55 Dextrose 50% 25 Gm/50 Ml Syringe IV PUSH PRN PRN Hypoglycemia Protocol Enalaprilat 1.25 mg 04/01/21 12:00 04/01/21 12:33 Enalaprilat 1.25 Mg/Ml Vial IV PUSH 1.25 mg Q6HR MARIA D Administration Glucagon 1 mg 03/25/21 01:55 Glucagon For Inj 1 Mg Vial IM PRN PRN Hypoglycemia Protocol Glucose 15 gm 03/25/21 01:55 Glucose Oral Gel 15 Gm Of Glucse In 37.5 Gm Tube PO PRN PRN Hypoglycemia Protocol Hydralazine HCl 100 mg 03/30/21 17:00 04/01/21 12:21 Hydralazine Hcl 50 Mg Tablet PO Not Given QID MARIA D Hydralazine HCl 20 mg 04/01/21 07:38 04/01/21 10:08 Hydralazine Hcl 20 Mg/Ml Vial IV PUSH 20 mg Q4H PRN Administration FOR SBP > 180 mmHg Dextrose 1,000 mls @ 100 mls/hr 03/25/21 01:55 Dextrose 5%
--- NOTE | 2021-04-01 13:13 | PCPTNOTE ---
RN requested for patient not to be seen for Physical Therapy today secondary to her having high blood pressure. RN reports that she would like to continue to monitor patient today without patient doing a lot of movement.
[2021-04-01] MEDS: CHLORHEXIDINE GLUCONATE 0.12% ORAL RINSE 473 ML BTL (*BKC) 15 ML SWISH/SPIT (17:30)
[2021-04-01 17:51] LABS: Glucose Point of Care 202 mg/dl (65-105)
[2021-04-01 23:09] LABS: Glucose Point of Care 133 mg/dl (65-105)
[2021-04-02] VITALS (16 sets, daily range): BP systolic 176–220; BP diastolic 66–93; PULSE 58–71; RESP 21–29; TEMP 36.5–36.9; O2SAT 87–100
[2021-04-02] MEDS: METOPROLOL TARTRATE INJ 5 MG/5 ML VIAL IV PUSH ×4 (01:56→18:43)
[2021-04-02] MEDS: ENALAPRILAT 1.25 MG/ML VIAL IV PUSH ×3 (05:33→18:44)
[2021-04-02] MEDS: CENTRAL LINE FLUSH 10 ML IV PUSH ×2 (05:33→14:08)
[2021-04-02 06:26] LABS: Glucose Point of Care 111 mg/dl (65-105)
--- NOTE | 2021-04-02 10:18 | WPDANESEPPF ---
Anes - Initial Pre Proc Eval Procedure: Operation Date: 04/02/21 12:00 Proposed Procedures p Percutaneous Endoscopic Gastrostomy - Froilan Espinoza MD s Esophagogastroduodenoscopy - Froilan Espinoza MD Date/Time: 04/02/21 10:18 Surgeon: Neto Rizo MD Pre Op Diagnosis: CAP,CHF,hypoglycemia,elevated trop Patient Data Age: 66 Gender: F Height: 1.75 m Weight: 83.6 kg Last Vital Signs Temp 98.1 F 04/02/21 09:05 Pulse 58 L 04/02/21 09:05 Resp 22 H 04/02/21 09:05 BP 190/66 H 04/02/21 09:05 Pulse Ox 94 04/02/21 09:05 Allergies Allergy/AdvReac Type Severity Reaction Status Date / Time amlodipine Allergy Mild y Verified 03/20/21 14:07 Home Medications Medication Instructions Recorded Confirmed Type gabapentin 300 mg capsule 300 mg PO DAILY #90 cap 01/30/21 03/25/21 Rx rosuvastatin 20 mg tablet 20 mg PO DAILY #30 tablet 01/30/21 03/25/21 Rx sitagliptin 50 mg-metformin 500 mg 1 tablet PO BID #90 tablet 01/30/21 03/25/21 Rx tablet spironolactone 25 mg tablet 50 mg PO DAILY tablet 02/18/21 03/25/21 History allopurinol 100 mg tablet 100 mg PO DAILY #30 tablet 03/24/21 03/25/21 Rx glimepiride 4 mg tablet 4 mg PO QAM #30 tablet 03/24/21 03/25/21 Rx losartan 100 mg tablet 100 mg PO DAILY #30 tablet 03/24/21 03/25/21 Rx bumetanide 0.5 mg PO BID 03/25/21 03/25/21 History escitalopram oxalate [Lexapro] 20 mg PO DAILY 03/25/21 03/25/21 History hydralazine 100 mg PO BID 03/25/21 03/25/21 History metoprolol tartrate 50 mg PO BID 03/25/21 03/25/21 History Laboratory Tests 04/01/21 04/01/21 04/01/21 11:38 17:28 23:04 POC Capillary Glucose 160 mg/dl H mg/dl 202 mg/dl H mg/dl 133 mg/dl H mg/dl (65-105) (65-105) (65-105) 04/02/21 05:41 POC Capillary Glucose 111 mg/dl H mg/dl (65-105) Patient hx anesthesia problems: none Family hx anesthesia problems: none Results Review: All pre-operative results and documents have been reviewed as part of the pre-operative evaluation. [facility] Past Medical History Medical History (Updated 04/01/21 @ 11:24 by Dixon Valencia DO) Aphasia Crying Diabetes Frequent urination High blood pressure Hot flashes Hyperlipidemia Leg pain Memory loss Swollen feet Weakness Surgical History Surgical History History of back surgery Family History Family History Mother Hypertension Sibling Alcoholism Heart problem Social History Social History Smoking packs per day: 0.75 Smoking cigarettes per day: 15.0 Years smoked: 40 Smoking pack-years: 30.00 Smoking status: Unknown if ever smoked Tobacco type: cigarettes Second hand tobacco smoke exposure: No Alcohol intake: unknown Substance use: unknown Substance use type: does not use Spiritual care concerns: No Anes - Eval Final PreProcedure Day of Procedure 04/02/21 10:18 Patient weight: overweight Heart: regular rate and rhythm Lungs: clear to auscultation Airway: Mallampati scale class III Neurological: alert and oriented Last oral intake: >/= 8 hours ASA classification: IV Emergent: no Anesthetic plan: proceed Anesthesia type and monitoring: general GIVS and standard monitoring Results Review: All pre-operative results and documents have been reviewed as part of the pre-operative evaluation. Informed Consent: The patient's anesthetic plan and its attendant risks and benefits were discussed with the patient/family/POA. Questions were solicited and answers provided to the satisfaction of the patient/family/POA.
--- NOTE | 2021-04-02 10:31 | PCSTNOTE ---
The patient treatment was not able to be completed on 04/02 due to surgery for PEG tube placement. Will plan to continue treatment per plan of care tomorrow.
[2021-04-02] MEDS: LACTATED RINGERS 1,000 ML 150 ML IV CONT (10:50)
--- NOTE | 2021-04-02 11:38 | PM.IMPN ---
Progress Note: A&P Assessment and Plan (1) Pneumonia due to COVID-19 virus: Code(s): U07.1 - COVID-19; J12.82 - Pneumonia due to coronavirus disease 2018 Status: Acute (2) Aphasia: Code(s): R47.01 - Aphasia Status: Acute (3) Diabetes: Code(s): E11.9 - Type 2 diabetes mellitus without complications Status: Acute (4) Stroke: Code(s): I63.9 - Cerebral infarction, unspecified Status: Acute (5) Acute respiratory failure: Code(s): J96.00 - Acute respiratory failure, unspecified whether with hypoxia or hypercapnia Status: Acute (6) COVID: Code(s): U07.1 - COVID-19 Status: Acute (7) Hypertension associated with diabetes: Code(s): E11.59 - Type 2 diabetes mellitus with other circulatory complications; I15.2 - Hypertension secondary to endocrine disorders Status: Acute Additional Plan # right MCA stroke -complete left-sided paralysis, significant morbidity -patient will need extensive therapy long-term -PT/OT/SP to continue working with patient -p.r.n. Zofran for nausea -continue D5 half-normal saline at 75 cc/hour until PEG tube can be used -PEG tube placed 04/02/2021, likely start using it tomorrow, will stop IV fluids when PEG tube is active -etiology of stroke is unclear, may be cardiac in origin, with COVID that likely caused increased risk of clotting -will need to start statin when PEG tube is available and aspirin -will get lipid panel and A1c for tomorrow # essential hypertension # hypertensive cardiomyopathy -PO regimen metoprolol 50 mg q.12 hours, Cozaar 100 mg daily, hydralazine 50 mg q.i.d., increasing to 100 mg as she is persistently hypertensive -patient NPO because of her stroke and keeps on removing NG tube. Will manage with IV medications until PEG tube placed -blood pressure control: Stopping scheduled metoprolol for heart rate 60, increasing p.r.n. hydralazine to 20 mg q.4 hours p.r.n., continue base attack IV q.6 hours, continue clonidine patch 0.3 -will switch to PEG tube when available for enteral antihypertensive # COVID-19 # acute hypoxic respiratory failure -status post remdesivir, Decadron switch to Solu-Medrol for bradycardia, completed steroids on 04/02/2021 -patient is on room air on 04/02/2021, tomorrow 04/03/2021 will be 10 days and we can remove isolation # laceration of tongue -patient had bit her tongue, bleeding in mouth, blood appears fresh, no blood thinners given -d/w nurse for continued oral care, peridex wash -little bit of dry blood in mouth # superimposed bacterial pneumonia -patient was put on Unasyn 5 days, completed 03/31/2021 -leukocytosis down to 10.2 # insulin-dependent diabetic -continue glargine 14 units daily, sliding scale insulin, hypoglycemia protocol -blood sugars appear to be stable 120-200 Diet: NPO, PEG placed today DVT prophylaxis: Blood thinners held for PEG tube placement tomorrow, also bleeding in mouth as she bit her tongue Code status: Do not resuscitate Disposition: plan for SNF 04/04/2021 Social: Brother [phone] updated Subjective Date/time seen: 04/01/21 11:38 Patient seen and examined. She had PEG tube placed today. Bleeding in her mouth after tongue bite is improving, nurses are providing oral care. I called and updated brother Gerson Alarcon who understands agrees with plan. Patient will likely start tube feeds tomorrow and should be good to go to shelter by Wednesday. Tomorrow will be 10 days and she will be off isolation tomorrow. Review of Systems Review of Systems: ROS unobtainable: Yes unobtainable due to medical condition Exam Narrative: - GENERAL: ill appear woman. profound weakness - EYES: EOMI. Anicteric. right gaze preference - HENT: Moist mucous membranes. left facial droop. Dark coagulating blood in mouth, less than yesterday - LUNGS: Clear to auscultation bilaterally, no wheezing, rhonchi, or rales. Nonlabored respirations on room air - CARDIOVASCULAR:
--- NOTE | 2021-04-02 12:01 | PCPTNOTE ---
The patient treatment was not able to be completed due to patient out of room for procedure. Will plan to continue treatment per plan of care.
[2021-04-02 13:13] LABS: Glucose Point of Care 139 mg/dl (65-105)
[2021-04-02] MEDS: DEXTROSE 5%/0.45% SOD CHL 1,000 ML 75 ML IV CONT (14:03)
[2021-04-02] MEDS: CHLORHEXIDINE GLUCONATE 0.12% ORAL RINSE 473 ML BTL (*BKC) 15 ML SWISH/SPIT ×2 (14:04→18:44)
[2021-04-02] MEDS: INSULIN GLARGINE (*BKC) 100 UNITS/ML 14 UNITS SUB-Q (14:06)
[2021-04-02] MEDS: methylPREDNISolone SOD SUCC 40 MG VIAL IV PUSH (14:09)
[2021-04-02 14:49] LABS: Hematocrit 46.8 % (37.0-47.0); Hemoglobin 13.8 g/dL (12.0-15.0); Mean Corpuscular HGB Conc 29.5 g/dl (32-36); Mean Corpuscular Hemoglobin 30.5 pg (26-34); Mean Corpuscular Volume 103.3 fl (80-100); Mean Platelet Volume 10.8 fl (7.4-10.4); Platelet Count Result 161 k/mm3 (150-375); Red Blood Count 4.53 M/mm3 (4.2-5.4); Red Cell Distribution Width 14.1 % (11.5-14.5); White Blood Count 8.9 K/mm3 (4.5-10.0)
[2021-04-02 15:12] LABS: Anion Gap 4 mmol/L (8-16); Blood Urea Nitrogen 52 mg/dL (7-17); Calcium 9.3 mg/dL (8.4-10.2); Carbon Dioxide 27 mmol/L (22-30); Chloride 122 mmol/L (98-107); Estimated CRCL calculation 34 ml/min; Estimated Glomerular Filt Rate 42; Glucose 143 mg/dL (65-110); Sodium 153 mmol/L (137-145)
--- NOTE | 2021-04-02 15:54 | PCNFU ---
Nutrition Follow-Up Complete: Inadequate oral intake related to mechancial ventiliation as evidenced by NPO Goal: Meet nutritional needs Pt is not progressing toward goal Pt current nutrition is NPO Last recorded weight is 83.6 kg. Bowel Motility: No new BM reported Labs Reviewed: Na 153, Cl 122, BUN 52, GFR 42, Glu 139 Meds Noted: peridex, vasotec, lantus, lopressor Skin: WNL Additional Notes: RDN consulted to start tube feeding. Per EMR, pt had a G-tube placed today (04/02/21). RDN has placed orders to initiated tube feeding of glucerna 1.2 starting at 20mL/hr and increasing rate by 10mL/hr every q6 hours until a goal rate of 65mL/hr has been met. Glucerna 1.2 running at 20mL/hr over 22 hours will provide 528kcal, 26g of protein, and 354mL of water. Glucerna 1.2 running at goal rate of 65mL/hr over 22 hours will provide 1716kcal, 86g of protein, and 1151mL of water, meeting 100% of kcal and protein needs. Agree with diet order at this time. Will continue to follow. Monitor every T/F
[2021-04-02 17:06] LABS: Glucose Point of Care 160 mg/dl (65-105)
[2021-04-02] MEDS: LOSARTAN POTASSIUM 50 MG TABLET 100 MG PO (18:44)
[2021-04-02] MEDS: ASPIRIN 325 MG TABLET FEED TUBE (18:44)
[2021-04-03] VITALS: BP 156/87; PULSE 74; PULSE 75; RESP 22; TEMP 36.4; O2SAT 94
[2021-04-03 01:00] VITALS: PULSE 77
[2021-04-03] MEDS: CENTRAL LINE FLUSH 10 ML IV PUSH ×2 (01:00→08:48)
[2021-04-03] MEDS: METOPROLOL TARTRATE INJ 5 MG/5 ML VIAL IV PUSH ×2 (01:00→06:35)
[2021-04-03] MEDS: ENALAPRILAT 1.25 MG/ML VIAL IV PUSH ×2 (01:00→06:35)
[2021-04-03] MEDS: INSULIN ASPART (*BKC) 100 UNITS/ML SUB-Q (01:02)
[2021-04-03 01:43] LABS: Glucose Point of Care 208 mg/dl (65-105)
[2021-04-03 04:00] VITALS: PULSE 70
[2021-04-03 06:34] LABS: Hematocrit 42.3 % (37.0-47.0); Hemoglobin 12.6 g/dL (12.0-15.0); Mean Corpuscular HGB Conc 29.8 g/dl (32-36); Mean Corpuscular Hemoglobin 30.9 pg (26-34); Mean Corpuscular Volume 103.7 fl (80-100); Mean Platelet Volume 11.5 fl (7.4-10.4); Platelet Count Result 134 k/mm3 (150-375); Red Blood Count 4.08 M/mm3 (4.2-5.4); Red Cell Distribution Width 13.9 % (11.5-14.5); White Blood Count 13.6 K/mm3 (4.5-10.0)
[2021-04-03 06:35] VITALS: PULSE 81
[2021-04-03 06:39] LABS: Hemoglobin A1C 7.7 % (<5.7)
[2021-04-03 06:51] LABS: Alanine Aminotransferase 34 U/L (4-35); Albumin Level 2.7 g/dL (3.5-5.1); Alkaline Phosphatase 58 U/L (38-126); Anion Gap 3 mmol/L (8-16); Aspartate Amino Transferase 45 U/L (14-36); Bilirubin,Total 0.7 mg/dL (0.2-1.3); Blood Urea Nitrogen 65 mg/dL (7-17); Calcium 9.4 mg/dL (8.4-10.2); Carbon Dioxide 28 mmol/L (22-30); Chloride 123 mmol/L (98-107); Cholesterol 113 mg/dL (0-200); Estimated CRCL calculation 29 ml/min; Estimated Glomerular Filt Rate 34; Glucose 203 mg/dL (65-110); HDL Direct 32 mg/dL; Potassium 4.5 mmol/L (3.4-5.0); Sodium 154 mmol/L (137-145); Triglycerides 206 mg/dL (<150)
[2021-04-03 06:52] LABS: LDL Cholesterol Direct 47 mg/dL
[2021-04-03 07:36] LABS: Glucose Point of Care 186 mg/dl (65-105)
[2021-04-03 08:00] VITALS: BP 139/52; PULSE 66; PULSE 67; RESP 20; TEMP 36.3; O2SAT 92
[2021-04-03] MEDS: DEXTROSE 5%/0.45% SOD CHL 1,000 ML 75 ML IV CONT (08:44)
[2021-04-03] MEDS: INSULIN GLARGINE (*BKC) 100 UNITS/ML 14 UNITS SUB-Q (08:44)
[2021-04-03] MEDS: CHLORHEXIDINE GLUCONATE 0.12% ORAL RINSE 473 ML BTL (*BKC) 15 ML SWISH/SPIT (08:47)
--- NOTE | 2021-04-03 16:35 | PM.DDS ---
Discharge Summary Date and Time Date of : 04/03/21 Time of : 10:40 Provider Pronounced By: Kiran Ramirez MD Probable Cause of Probable Cause of : Stroke Summary Hospital Course: 66yo female with DN, HTN, CHF and PAD initially admitted after being found unresponsive and discovered to have had a large right MCA CVA. She was out of the window for tPA. Patient's condition worsened requiring intubation. She was discovered to be COVID positive. Echo showed EF 15-20%. She was stabilized and ultimately able to extubate. She later failed a swallow study so PEG was placed 04/02/21. HTN urgency was noted and she was requiring IV Enalpril and IV Metoprolol until PEG was placed. Today, she was sat up at the side of the bed with therapy when she became weak and so she was laid back down. She became unresponsive and noted to be bradycardic then cessation of a heart rhythm by tele. She was DNR. She on 04/03/21 at 1040. Spoke personally with family and all questions were answered. Condolences were offered. Additional Data Confirmation of as documented by pronouncing clinician: Palpable Pulses, Heart Tones and Breath Sounds Family: contacted Additional persons at bedside: nursing information systems coordinator Was code activated?: No Provider Requests Autopsy: No Lease Analyst Notified: Yes Date [facility] Notified of : 04/03/21 Time [facility] Notified of : 12:39 Advance directives: Yes Hospice patient?: No
== END 2021-04-03 10:40 | disposition expired | DRG 64 ==
LOC: ANHED 21:49 → ANH3MEDSUR 03-25 11:11 → ANHIMU 03-31 15:43 → ANH3MEDSUR 04-01 08:22 → ANHICU 04-09 08:12 → ANHIMU 04-09 08:12
PROVIDERS: Internal Medicine; Internal Medicine Gastroenterology; Student in an Organized Health Care Education/Training Program; Admitting Provider Internal Medicine; Emergency Provider Nurse Practitioner; PCP Internal Medicine; Visit Provider Internal Medicine
PROC: 0DH63UZ Insertion of Feeding Device into Stomach, Percutaneous Approach (ICD-10-PCS; CPT 43246; principal; 2021-04-02 12:00)
DX: I63.311 Cerebral infarction due to thrombosis of right middle cerebral artery (principal); U07.1 COVID-19; J12.82 Pneumonia due to coronavirus disease 2019; J96.01 Acute respiratory failure with hypoxia; J15.9 Unspecified bacterial pneumonia; G81.94 Hemiplegia, unspecified affecting left nondominant side; E87.3 Alkalosis; I31.3 Pericardial effusion (noninflammatory); G93.49 Other encephalopathy; I50.22 Chronic systolic (congestive) heart failure; I42.0 Dilated cardiomyopathy; I43 Cardiomyopathy in diseases classified elsewhere; I11.0 Hypertensive heart disease with heart failure; E11.59 Type 2 diabetes mellitus with other circulatory complications; I15.2 Hypertension secondary to endocrine disorders; I16.0 Hypertensive urgency; R41.3 Other amnesia; R29.810 Facial weakness; K29.70 Gastritis, unspecified, without bleeding; E78.5 Hyperlipidemia, unspecified; F32.A Depression, unspecified; F17.210 Nicotine dependence, cigarettes, uncomplicated; R13.19 Other dysphagia; R00.1 Bradycardia, unspecified; R40.4 Transient alteration of awareness; R47.81 Slurred speech; R47.01 Aphasia; I73.9 Peripheral vascular disease, unspecified; K21.9 Gastro-esophageal reflux disease without esophagitis; Z66 Do not resuscitate; S01.512A Laceration without foreign body of oral cavity, initial encounter; X58.XXXA Exposure to other specified factors, initial encounter
CPT/HCPCS: 36415; 36569; 36600; 43246; 51701; 70450; 70496; 70498; 71045; 72125; 73521; 73610; 73630; 76775; 80048; 80053; 80061; 80307; 81001; 82375; 82550; 82565; 82728; 82805; 82948; 83036; 83050; 83605; 83615; 83735; 83880; 84460; 84484; 85025; 85027; 85610; 85730; 86140; 87040; 87086; 87804; 92526; 92610; 93005; 93306; 94002; 94003; 97110; 97163; 97167; 97530; 99285; A4248; A9270; C1751; C8929; C9803; J0295; J0360; J0456; J0690; J0696; J1100; J1815; J1940; J2250; J2704; J2920; J3010; J7030; J7120; Q0249; Q9957; Q9967; U0003; U0005